=== PATIENT | female | born 1940 | race Two or more races ===

== ENCOUNTER 2016-03-30 15:59 | Inpatient (IN) | payer MEDICARE, OTHER ==
[~2016-03-30] VITALS: Ht 170.2 cm; Wt 77.1 kg
[~2016-03-30 15:59] MED LIST: NKM
[2016-03-30 16:00] VITALS: BP 167/91
[2016-03-30] MEDS ORDERED: Morphine Sulfate 4mg/ml Inj IVP ONE ×2 (16:15→17:30)
[2016-03-30 16:27] LABS: BASOPHILS % (AUTO) 1.1 % (0.0-2.0); EOSINOPHILS % (AUTO) 2.5 % (0.0-3.0); LYMPHOCYTES % (AUTO) 32.8 % (20.0-45.0); MEAN CORPUSCULAR HEMOGLOBIN 29.6 PG (27.0-31.0); MEAN CORPUSCULAR VOLUME 93 FL (80-99); MONOCYTES % (AUTO) 4.1 % (1.0-10.0); NEUTROPHILS % (AUTO) 59.5 % (45.0-75.0); PLATELET COUNT 363 K/UL (150-450); RED BLOOD COUNT 4.54 M/UL (4.20-5.40); WHITE BLOOD COUNT 9.9 K/UL (4.8-10.8)
[2016-03-30 16:40] LABS: ALANINE AMINOTRANSFERASE 23 U/L (3-33); ALBUMIN/GLOBULIN RATIO 1.4 (1.0-2.7); ANION GAP 13 (5-15); ASPARTATE AMINO TRANSFERASE 26 U/L (5-40); CALCIUM 9.8 mg/dL (8.6-10.2); CARBON DIOXIDE 29 mEQ/L (20-30); CHLORIDE 96 mEQ/L (98-107); CREATININE 0.8 mg/dL (0.5-0.9); HEMOLYSIS 18; POTASSIUM 4.3 mEQ/L (3.4-4.9); SODIUM 138 mEQ/L (135-145); TOTAL PROTEIN 7.3 g/dL (6.6-8.7)
[2016-03-30 16:41] LABS: PROTHROMBIN TIME 10.5 SEC (9.30-11.50)
[2016-03-30 16:50] VITALS: BP 154/70
--- NOTE | 2016-03-30 17:27 | Emergency Room Report ---
History of Present Illness General Chief Complaint: Pain Source: Patient Present Illness HPI This patient states that she was at work and tripped over a wire on the floor and fell onto her right side. She complains of right hip pain. She was unable to bear weight after the fall. She did not have head injury or trauma. She has no neck pain. She denies headache. She denies abdominal pain or chest pain. She denies shortness of breath. She has no other complaints. Allergies: Coded Allergies: PENICILLINS (Unverified Allergy, Unknown, 03/30/16) Patient History Past Medical History: none, see triage record Social History: Denies: alcohol use, drug use, smoking Reviewed Nursing Documentation: PMH: Agreed, PSxH: Agreed Nursing Documentation-PMH Past Medical History: No Stated History Review of Systems All Other Systems: negative except mentioned in HPI Physical Exam Vital Signs Date Time Temp Pulse Resp B/P Pulse Ox O2 Delivery O2 Flow Rate FiO2 03/30/16 15:50 98.2 76 19 144/86 99 Room Air Sp02 EP Interpretation: reviewed, normal General Appearance: no apparent distress, alert, GCS 15, non-toxic Head: normocephalic, atraumatic Eyes: bilateral eye PERRL, bilateral eye normal inspection ENT: hearing grossly normal, normal pharynx, no angioedema, normal voice Neck: full range of motion, supple/symm/no masses Respiratory: chest non-tender, lungs clear, normal breath sounds, speaking full sentences Cardiovascular #1: regular rate, rhythm, no edema Gastrointestinal: normal bowel sounds, non tender, soft, non-distended, no guarding, no rebound Rectal: deferred Musculoskeletal: back normal, other - R. hip. Pain with ROM Neurologic: alert, oriented x3, responsive, motor strength/tone normal, sensory intact, speech normal Psychiatric: judgement/insight normal, memory normal, mood/affect normal, no suicidal/homicidal ideation Skin: normal color, no rash, warm/dry, well hydrated Medical Decision Making Diagnostic Impression: Primary Impression: Hip fracture ER Course This patient presents with a right intertrochanteric fracture of the right hip. This is from a mechanical fall. There were no other injuries. Basic laboratory workup to include CBC, CMP and a coags are within normal limits. The patient is admitted for surgical repair. Labs Test 03/30/16 16:10 White Blood Count 9.9 K/UL (4.8-10.8) Red Blood Count 4.54 M/UL (4.20-5.40) Hemoglobin 13.4 G/DL (12.0-16.0) Hematocrit 42.0 % (37.0-47.0) Mean Corpuscular Volume 93 FL (80-99) Mean Corpuscular Hemoglobin 29.6 PG (27.0-31.0) Mean Corpuscular Hemoglobin Concent 32.0 G/DL (32.0-36.0) Red Cell Distribution Width 12.0 % (11.6-14.8) Platelet Count 363 K/UL (150-450) Mean Platelet Volume 6.0 FL (6.5-10.1) Neutrophils (%) (Auto) 59.5 % (45.0-75.0) Lymphocytes (%) (Auto) 32.8 % (20.0-45.0) Monocytes (%) (Auto) 4.1 % (1.0-10.0) Eosinophils (%) (Auto) 2.5 % (0.0-3.0) Basophils (%) (Auto) 1.1 % (0.0-2.0) Prothrombin Time 10.5 SEC (9.30-11.50) Prothromb Time International Ratio 1.0 (0.9-1.1) Activated Partial Thromboplast Time 26 SEC (23-33) Sodium Level 138 mEQ/L (135-145) Potassium Level 4.3 mEQ/L (3.4-4.9) Chloride Level 96 mEQ/L (98-107) Carbon Dioxide Level 29 mEQ/L (20-30) Anion Gap 13 (5-15) Blood Urea Nitrogen 19 mg/dL (7-23) Creatinine 0.8 mg/dL (0.5-0.9) Estimat Glomerular Filtration Rate mL/min (>60) Glucose Level 130 mg/dL (74-106) Calcium Level 9.8 mg/dL (8.6-10.2) Total Bilirubin 0.2 mg/dL (0.0-1.2) Aspartate Amino Transf (AST/SGOT) 26 U/L (5-40) Alanine Aminotransferase (ALT/SGPT) 23 U/L (3-33) Alkaline Phosphatase 85 U/L (35-104) Total Protein 7.3 g/dL (6.6-8.7) Albumin 4.3 g/dL (3.5-5.2) Globulin 3.0 g/dL Albumin/Globulin Ratio 1.4 (1.0-2.7) EKG Diagnostic Results Rate: normal Rhythm: NSR ST Segments: no acute changes Rhythm Strip Diag. Results EP Interpretation: yes Rate: 80's Rhythm: NSR, no PVC's, no ectopy Last Vital Signs Date Time Temp Pulse Resp B/P Pulse Ox O2 Delivery O2 Flow Rate FiO2 03/30/16 16:50 98.3 77 12 154/70 99 Room Air Disposition: ADMITTED INPATIENT Condition: Stable Referrals: [facility],REFERR[facility] (PCP) VIKKI BENNETT D.O. Mar 30, 2016 17:27
[2016-03-30 18:09] VITALS: BP 140/71
[2016-03-30 20:44] VITALS: BP 142/99
[2016-03-30] MEDS ORDERED: Morphine Sulfate 4mg/ml Inj IVP PRN (20:45)
[2016-03-30] MEDS ORDERED: Morphine Sulfate 4mg/ml Inj IM PRN (21:45)
[2016-03-30] MEDS: Morphine Sulfate 4mg/ml Inj IVP PRN (23:10)
[2016-03-31] VITALS (18 sets, daily range): BP systolic 103–172; BP diastolic 61–84
[2016-03-31] MEDS: Morphine Sulfate 4mg/ml Inj IVP PRN ×4 (02:55→14:26)
--- NOTE | 2016-03-31 09:02 | Consultation ---
History of Present Illness General Date patient seen: Mar 31, 2016 Chief Complaint: Pain Present Illness Allergies: Coded Allergies: PENICILLINS (Unverified Allergy, Unknown, 03/30/16) Medication History Scheduled No Known Medications* (NKM - No Known Medications*), 0 ., (Reported) Patient History Healthcare decision maker n/a Resuscitation status Full Code Advanced Directive on File No Physical Exam Last 24 Hour Vital Signs Date Time Temp Pulse Resp B/P Pulse Ox O2 Delivery O2 Flow Rate FiO2 03/31/16 08:49 98.1 78 18 115/70 95 Room Air 03/31/16 04:00 97.9 83 20 119/65 97 Room Air 03/31/16 03:25 97.9 03/31/16 00:00 97.9 104 18 103/61 97 Room Air 03/30/16 23:40 97.9 03/30/16 21:19 97.5 03/30/16 20:44 97.5 107 20 142/99 98 Room Air 03/30/16 20:15 80 15 128/67 98 Room Air 03/30/16 18:09 80 12 140/71 99 Room Air 03/30/16 18:07 98.3 03/30/16 16:50 98.3 77 12 154/70 99 Room Air 03/30/16 16:50 98.3 03/30/16 16:00 85 17 167/91 100 Room Air 03/30/16 15:50 98.2 76 19 144/86 99 Room Air Intake and Output 03/30/16 03/31/16 19:00 07:00 Intake Total 295 ml Output Total 2900 ml Balance -2605 ml Intake Oral 220 ml IV Total 75 ml Output Urine Total 2900 ml Laboratory Tests Test 03/30/16 16:10 White Blood Count 9.9 K/UL (4.8-10.8) Red Blood Count 4.54 M/UL (4.20-5.40) Hemoglobin 13.4 G/DL (12.0-16.0) Hematocrit 42.0 % (37.0-47.0) Mean Corpuscular Volume 93 FL (80-99) Mean Corpuscular Hemoglobin 29.6 PG (27.0-31.0) Mean Corpuscular Hemoglobin Concent 32.0 G/DL (32.0-36.0) Red Cell Distribution Width 12.0 % (11.6-14.8) Platelet Count 363 K/UL (150-450) Mean Platelet Volume 6.0 FL (6.5-10.1) L Neutrophils (%) (Auto) 59.5 % (45.0-75.0) Lymphocytes (%) (Auto) 32.8 % (20.0-45.0) Monocytes (%) (Auto) 4.1 % (1.0-10.0) Eosinophils (%) (Auto) 2.5 % (0.0-3.0) Basophils (%) (Auto) 1.1 % (0.0-2.0) Prothrombin Time 10.5 SEC (9.30-11.50) Prothromb Time International Ratio 1.0 (0.9-1.1) Activated Partial Thromboplast Time 26 SEC (23-33) Sodium Level 138 mEQ/L (135-145) Potassium Level 4.3 mEQ/L (3.4-4.9) Chloride Level 96 mEQ/L (98-107) L Carbon Dioxide Level 29 mEQ/L (20-30) Anion Gap 13 (5-15) Blood Urea Nitrogen 19 mg/dL (7-23) Creatinine 0.8 mg/dL (0.5-0.9) Estimat Glomerular Filtration Rate mL/min (>60) Glucose Level 130 mg/dL (74-106) H Calcium Level 9.8 mg/dL (8.6-10.2) Total Bilirubin 0.2 mg/dL (0.0-1.2) Aspartate Amino Transf (AST/SGOT) 26 U/L (5-40) Alanine Aminotransferase (ALT/SGPT) 23 U/L (3-33) Alkaline Phosphatase 85 U/L (35-104) Total Protein 7.3 g/dL (6.6-8.7) Albumin 4.3 g/dL (3.5-5.2) Globulin 3.0 g/dL Albumin/Globulin Ratio 1.4 (1.0-2.7) Height (Feet): 5 Height (Inches): 7.00 Weight (Pounds): 128 Medications Current Medications Medications (Trade) Dose Ordered Sig/Bryan Route PRN Reason Start Time Stop Time Status Last Admin Dose Admin Acetaminophen (Tylenol) 650 mg Q4H PRN ORAL Mild Pain/Temp > 100.5 03/30/16 21:15 04/29/16 21:14 Morphine Sulfate (Morphine Sulfate) 4 mg Q2H PRN IVP Severe Breakthru Pain (>7) 03/30/16 23:15 04/06/16 23:14 03/31/16 08:15 Morphine Sulfate (Morphine Sulfate) 4 mg Q4H PRN IVP Severe Pain (Pain Scale 7-10) 03/30/16 21:50 04/06/16 20:44 03/30/16 23:10 Sodium Chloride (0.45% NS 1000ml) 1,000 ml @ 75 mls/hr [id number] IV 03/30/16 22:00 04/29/16 21:59 03/30/16 23:06 Assessment/Plan Assessment/Plan (1) Right hip Fx (2) Right hip intractable pain Seem Dictated GEORGINA SAUL Mar 31, 2016 09:02
--- NOTE | 2016-03-31 09:59 | Cardiac Electrophysiology PN ---
Subjective Subjective [id number] Objective Last 24 Hour Vital Signs Date Time Temp Pulse Resp B/P Pulse Ox O2 Delivery O2 Flow Rate FiO2 03/31/16 08:49 98.1 78 18 115/70 95 Room Air 03/31/16 08:45 98.1 03/31/16 04:00 97.9 83 20 119/65 97 Room Air 03/31/16 00:00 97.9 104 18 103/61 97 Room Air 03/30/16 23:40 97.9 03/30/16 21:19 97.5 03/30/16 20:44 97.5 107 20 142/99 98 Room Air 03/30/16 20:15 80 15 128/67 98 Room Air 03/30/16 18:09 80 12 140/71 99 Room Air 03/30/16 18:07 98.3 03/30/16 16:50 98.3 77 12 154/70 99 Room Air 03/30/16 16:50 98.3 03/30/16 16:00 85 17 167/91 100 Room Air 03/30/16 15:50 98.2 76 19 144/86 99 Room Air Intake and Output 03/30/16 03/31/16 18:59 06:59 Intake Total 220 ml Output Total 2900 ml Balance -2680 ml Intake Oral 220 ml Output Urine Total 2900 ml Laboratory Tests Test 03/30/16 16:10 White Blood Count 9.9 K/UL (4.8-10.8) Red Blood Count 4.54 M/UL (4.20-5.40) Hemoglobin 13.4 G/DL (12.0-16.0) Hematocrit 42.0 % (37.0-47.0) Mean Corpuscular Volume 93 FL (80-99) Mean Corpuscular Hemoglobin 29.6 PG (27.0-31.0) Mean Corpuscular Hemoglobin Concent 32.0 G/DL (32.0-36.0) Red Cell Distribution Width 12.0 % (11.6-14.8) Platelet Count 363 K/UL (150-450) Mean Platelet Volume 6.0 FL (6.5-10.1) L Neutrophils (%) (Auto) 59.5 % (45.0-75.0) Lymphocytes (%) (Auto) 32.8 % (20.0-45.0) Monocytes (%) (Auto) 4.1 % (1.0-10.0) Eosinophils (%) (Auto) 2.5 % (0.0-3.0) Basophils (%) (Auto) 1.1 % (0.0-2.0) Prothrombin Time 10.5 SEC (9.30-11.50) Prothromb Time International Ratio 1.0 (0.9-1.1) Activated Partial Thromboplast Time 26 SEC (23-33) Sodium Level 138 mEQ/L (135-145) Potassium Level 4.3 mEQ/L (3.4-4.9) Chloride Level 96 mEQ/L (98-107) L Carbon Dioxide Level 29 mEQ/L (20-30) Anion Gap 13 (5-15) Blood Urea Nitrogen 19 mg/dL (7-23) Creatinine 0.8 mg/dL (0.5-0.9) Estimat Glomerular Filtration Rate mL/min (>60) Glucose Level 130 mg/dL (74-106) H Calcium Level 9.8 mg/dL (8.6-10.2) Total Bilirubin 0.2 mg/dL (0.0-1.2) Aspartate Amino Transf (AST/SGOT) 26 U/L (5-40) Alanine Aminotransferase (ALT/SGPT) 23 U/L (3-33) Alkaline Phosphatase 85 U/L (35-104) Total Protein 7.3 g/dL (6.6-8.7) Albumin 4.3 g/dL (3.5-5.2) Globulin 3.0 g/dL Albumin/Globulin Ratio 1.4 (1.0-2.7) DAGMAR BENAVIDES Mar 31, 2016 09:59
--- NOTE | 2016-03-31 11:41 | Diagnostic Imaging Report ---
Indication: Chest Pain Comparison: None A single view chest radiograph was obtained. Findings: This is a preop chest. Bones are osteopenic. Lungs are clear. Heart is mildly enlarged. Aorta is mildly ectatic and calcified. Impression: No acute disease
--- NOTE | 2016-03-31 11:56 | Diagnostic Imaging Report ---
Indications: hip pain Findings: Two views of the right hip were obtained. Bones are osteopenic. There is suspicion of a intertrochanteric fracture of the right hip is seen on the lateral view. This is nondisplaced. Degenerative changes of the lower lumbar spine noted. Vascular calcifications are present. Impression: Acute intertrochanteric fracture right hip
--- NOTE | 2016-03-31 16:18 | Consultation ---
DATE OF CONSULTATION: 03/31/2016 CARDIOLOGY CONSULTATION REASON FOR CONSULTATION: Preoperative clearance prior to hip surgery. HISTORY OF PRESENT ILLNESS: The patient is a very pleasant 75-year-old lady with no past medical history presented to the emergency room after she had trip and fall on a wire. The patient fell on right side and complaining of right hip pain. The patient will subsequently was brought to the emergency room, was found to have a right intertrochanteric fracture of the right hip. The patient is scheduled for her surgery and a Cardiology clearance was requested for further evaluation and management. The patient denies any prior congestive heart failure, hypertension, diabetes or any other medical condition. PAST MEDICAL HISTORY: None. MEDICATIONS: At home is none. SOCIAL HISTORY: She lives at home and does not smoke or drink alcohol. FAMILY HISTORY: Noncontributory. REVIEW OF SYSTEMS: Review of systems was thoroughly performed and was negative other what was mentioned in history of present illness. PHYSICAL EXAMINATION: VITAL SIGNS: Blood pressure is 115/70, pulse is 78, respirations 18 and she is afebrile. HEAD AND NECK: No JVD or carotid bruits. LUNGS: Clear. CARDIOVASCULAR: Regular S1 and S2 with no gallop or murmur. ABDOMEN: Soft and nontender. EXTREMITIES: No pitting edema. Right hip is rotated and tender. LABORATORY AND DIAGNOSTIC DATA: White count 9.9, hemoglobin 13.4, hematocrit 42, and platelet count 363,000. Sodium 138, potassium 4.3, BUN of 19, creatinine 0.8, and glucose of 130. Assessment And Plan: Status post fall, rule out any acute fracture. The patient denies any syncope or presyncope. The patient denies any prior congestive heart failure or prior myocardial infarction or hypertension or diabetes. The patient's other risk factors includes her age of 75. We will get an EKG and echocardiogram, but unless 02:54 positive findings, she should be stable to undergo the above-mentioned surgery. In the absence of any of her risk factors, stress test is not recommended at this point. Thank very much, Dr. Santiago, for allowing me to participate in the care of this patient. Please do not hesitate to contact me for any questions regarding my evaluation. The case was discussed with the nurse as well as the patient's son at the bedside. Martin Solis M.D. DR: CHIO JOB#: [id number] CC:
--- NOTE | 2016-03-31 17:16 | Anethesia Preoperative Eval ---
Anesthesia Pre-op PMH/ROS General Date of Evaluation: Mar 31, 2016 Anesthesiologist: Freddie ASA Score: ASA 2 Mallampati Score Class I : Soft palate, uvula, fauces, pillars visible Class II: Soft palate, uvula, fauces visible Class III: Soft palate, base of uvula visible Class IV: Only hard plate visible Mallampati Classification: Class II Surgeon: Kyle Diagnosis: Right hip fracture Surgical Procedure: Right hip ORIF Anesthesia History: none Family History: no anesthesia problems Allergies: Coded Allergies: PENICILLINS (Unverified Allergy, Unknown, 03/30/16) Medications: see eMAR Past Medical History Cardiovascular: Reports: other - hypotension, Denies: CAD, HTN, [place], arrhythmia, valve dz Pulmonary: Denies: COPD, TAMEKA, asthma, other Gastrointestinal/Genitourinary: Reports: GERD, Denies: CRI, ESRD, other Neurologic/Psychiatric: Denies: CVA, TIA, dementia, depression/anxiety, other Endocrine: Denies: DM, hypothyroidism, other, steroids HEENT: Denies: MOHEGAN (L), MOHEGAN (R), cataract (L), cataract (R), glaucoma, other Hematology/Immune: Denies: DVT, anemia, bleeding disorder, other Musculoskeletal/Integumentary: Denies: DDD, DJD, OA, RA, edema, other Anesthesia Pre-op Phys. Exam Physician Exam Last Vital Signs Date Time Temp Pulse Resp B/P Pulse Ox O2 Delivery O2 Flow Rate FiO2 03/31/16 16:02 98.2 71 18 123/62 93 Room Air Constitutional: NAD Cardiovascular: RRR Respiratory: CTA Airway Exam Mallampati Score: Class II MO: full ROM: full Teeth: intact Anesthesia Pre-op A/P Labs see chart Studies Pre-op Studies: EKG - RBBB Risk Assessment & Plan Assessment: ASA IIE Plan: GA Status Change Before Surgery: No Pre-Antibiotics Drug: Clindamycin 900mg Given Within 1 Hr of Incision: Yes Time Given: 19:25 CATRINA STROUD M.D. Mar 31, 2016 17:16
[2016-03-31] MEDS ORDERED: LR 1000ml 1,000 ML IVLG SCH ×2 (17:54→19:41)
[2016-03-31] MEDS ORDERED: Ketorolac 30mg Inj IV PRN (18:00)
[2016-03-31] MEDS ORDERED: Labetalol 5mg/ml 20ml vial IV PRN ×2 (18:00→19:45)
[2016-03-31] MEDS ORDERED: fentaNYL 100 mcg/2 mL IV PRN ×2 (18:00→19:45)
[2016-03-31] MEDS ORDERED: DiphenhydrAMINE 50mg/ml Inj IVP PRN ×2 (18:00→19:45)
[2016-03-31] MEDS ORDERED: Midazolam 2mg/2ml Inj IVP ONE (18:00)
[2016-03-31] MEDS ORDERED: Hydromorphone 0.5mg/0.5ml inj IVP PRN ×2 (18:00→19:45)
[2016-03-31] MEDS ORDERED: Propofol 10mg/ml 20ml IV ONE (18:07)
[2016-03-31] MEDS ORDERED: Bacitracin 50000 Units Vial ONE (18:08)
[2016-03-31] MEDS ORDERED: Clindamycin 6 ML ONE (18:08)
[2016-03-31] MEDS ORDERED: Bupivacaine w/Epi 0.25% 30ml Vial INJ ONE (18:08)
[2016-03-31] MEDS ORDERED: 1/2 NS 1000ml IV ONE (18:17)
[2016-03-31] MEDS ORDERED: D5NS 1000ml IV ONE (18:17)
[2016-03-31] MEDS ORDERED: Tubing IV Secondary IV ONE (18:20)
[2016-03-31] MEDS ORDERED: NS 550ML IV ONE (18:20)
--- NOTE | 2016-03-31 18:57 | Consultation ---
DATE OF CONSULTATION: CHIEF COMPLAINT: Right hip pain. HPI: This is a pleasant female, who sustained a mechanical fall. She had difficulty ambulating. She was brought to emergency room where she was diagnosed with right hip fracture. Orthopedic consultation was obtained for further care and recommendation. PAST MEDICAL HISTORY: Reviewed from the intake chart. PAST SURGICAL HISTORY: Reviewed from the intake chart. MEDICATIONS: Reviewed from the intake chart. PHYSICAL EXAMINATION: The patient has pain with internal and external rotation of the right hip. She has sensation on light touch. Reflexes are +2. Posterior calf is soft. Abdomen is soft. The patient is alert and oriented. IMAGING STUDIES: Two views of the right hip reviewed showed nondisplaced intertrochanteric hip fracture. ASSESSMENT: Right nondisplaced intertrochanteric hip fracture. DISCUSSION: At this point, she will need to undergo operative fixation with open reduction and internal fixation. Risks, limitations, expectations, and complications of procedure were discussed in detail. All questions addressed. We are going to proceed with surgery tomorrow. She is medically optimized. We will make her NPO in anticipation of surgery. Alternatives were also discussed with her, but in order for her to ambulate, she needs surgery. Jr Wright M.D. DR: ABDI JOB#: [id number] CC:
[2016-03-31] MEDS ORDERED: Lidocaine 1% MPF 10mg/ml 5ml ONE (19:00)
[2016-03-31] MEDS ORDERED: fentaNYL 100 mcg/2 mL IV ONE (19:00)
[2016-03-31] MEDS ORDERED: NS Irrig 1000ml ONE (19:00)
[2016-03-31] MEDS ORDERED: LR 1000ml ONE (19:00)
[2016-03-31] MEDS ORDERED: Etomidate 40mg/20ml Inj IV ONE (19:00)
[2016-03-31] MEDS ORDERED: Sterile Water Irrig 1000ml IRRIG ONE (19:00)
[2016-03-31] MEDS ORDERED: Ketamine 500mg Inj ONE (19:00)
[2016-03-31] MEDS ORDERED: Midazolam 2mg/2ml Inj ONE (19:00)
--- NOTE | 2016-03-31 19:14 | Operative Note - PDOC ---
Operative Note Operative Note Pre-op Diagnosis: right it hip fracture Procedure: right hip orif Post-op Diagnosis: same as pre-op Operative Findings: consistent w/pre-op dx studies Anesthesia: regional Specimen: none Complications: none Condition: stable Estimated Blood Loss: none Implant(s) used?: Yes NEDRA GIBBS Mar 31, 2016 19:14
--- NOTE | 2016-03-31 19:14 | Pre-Procedure Note/Attestation ---
Pre-Procedure Note/Attestation Complete Prior to Procedure Planned Procedure: right Procedure Narrative: hip orif Indications for Procedure Pre-Operative Diagnosis: right it hip fracture Attestation I attest that I discussed the nature of the procedure; its benefits; risks and complications; and alternatives (and the risks and benefits of such alternatives ), prior to the procedure, with the patient (or the patient's legal product representative). I attest that, if there was a reasonable possibility of needing a blood transfusion, the patient (or the patient's legal product representative) was given the [facility] standardized written summary, pursuant to the [place] Blood Safety Act ([place] Health and Safety Code # 1645, as amended). I attest that I re-evaluated the patient just prior to the surgery and that there has been no change in the patient's H&P, except as documented below: NEDRA GIBBS Mar 31, 2016 19:13
[2016-03-31] MEDS ORDERED: Metoclopramide 10mg/2ml Inj IVP PRN (19:15)
[2016-03-31] MEDS ORDERED: Norco 7.5mg/325mg tab ORAL PRN (19:15)
[2016-03-31] MEDS ORDERED: Milk of Magnesia 30ml Ud ORAL PRN (19:15)
[2016-03-31] MEDS ORDERED: Morphine Sulfate 2mg/ml Inj IVP PRN (19:15)
[2016-03-31] MEDS ORDERED: Morphine Sulfate 4mg/ml Inj IVP PRN (19:15)
[2016-03-31] MEDS ORDERED: oxyCODONE 5mg IR tab ORAL PRN (19:15)
[2016-03-31] MEDS ORDERED: Norco 5mg/325mg tab ORAL PRN (19:15)
[2016-03-31] MEDS ORDERED: Kenalog-40 1ml Vial ONE (19:41)
[2016-03-31] MEDS ORDERED: Morphine Sulfate PF 10 ML ONE (19:41)
--- NOTE | 2016-03-31 19:41 | Immediate Post-Op Evaluation ---
Immediate Post-Op Evalulation Immediate Post-Op Evalulation Procedure: Right hip ORIF Date of Evaluation: Mar 31, 2016 Time of Evaluation: 20:15 IV Fluids: 600 Blood Products: 0 Estimated Blood Loss: min Urinary Output: 300 Blood Pressure Systolic: 172 Blood Pressure Diastolic: 82 Pulse Rate: 83 Respiratory Rate: 16 O2 Sat by Pulse Oximetry: 100 Temperature (Fahrenheit): 97.4 Pain Score (1-10): 0 Nausea: No Vomiting: No Complications 0 Patient Status: awake, reacts, patent, none Hydration Status: adequate Drug: Clindamycin 900mg Given Within 1 Hr of Incision: Yes Time Given: 19:25 CATRINA STROUD M.D. Mar 31, 2016 19:41
[2016-03-31] MEDS ORDERED: Bupivacaine 0.25% Inj 30ml INJ ONE (19:42)
[2016-03-31] MEDS ORDERED: Ketorolac 30mg Inj IM ONE (20:00)
[2016-03-31] MEDS ORDERED: Duramorph PF 10mg/10ml amp EPIDUR ONE (20:00)
--- NOTE | 2016-03-31 21:35 | Cardiology Report ---
APPROVED REPORT EXAM: Two-dimensional and M-mode echocardiogram with Doppler and color Doppler. INDICATION Preop evaluation M-Mode DIMENSIONS IVSd1.3 (0.7-1.1cm)Left Atrium (MM)2.3 (1.6-4.0cm) LVDd3.5 (3.5-5.6cm)Aortic Root3.2 (2.0-3.7cm) PWd1.3 (0.7-1.1cm)Aortic Cusp Exc.1.6 (1.5-2.0cm) LVDs1.9 (2.5-4.0cm) PWs1.9 cm Normal left ventricular chamber size, hyperdynamic systolic function and wall motion. Left ventricular ejection fraction estimated to be 70-75 %. Mild left ventricular hypertrophy. Anterior Echo-free space, may be due to pericardial fat or effusion. All other cardiac chamber sizes are within normal limits. Focal aortic valve sclerosis with adequate cusp excursion. Thickened mitral valve leaflets with normal excursion. Mitral annulus and aortic root calcification. Pulmonic valve not well visualized. Normal tricuspid valve structure. IVC dilated at 2.1 cm with slight physiologic collapse suggestive of mildly increased RA pressure. A color flow and spectral Doppler study was performed and revealed: Mild mitral regurgitation. Mitral inflow indicates normal left ventricular diastolic function. Mild tricuspid regurgitation. Tricuspid systolic velocities suggests peak right ventricular systolic pressure of 40 mmHg, consistent with mild pulmonary hypertension.
[2016-03-31] MEDS ORDERED: ceFAZolin sod 2 GM in D5W 100 ML IV SCH (22:00)
[2016-04-01 00:30] VITALS: BP 131/76
[2016-04-01 04:16] VITALS: BP 114/69
[2016-04-01] MEDS: D5 1/2NS w/KCl 20mEq 1,000 ML IV SCH ×2 (04:28→08:20)
[2016-04-01] MEDS: Clindamycin 600mg 50 ML IV SCH ×3 (05:03→22:20)
--- NOTE | 2016-04-01 06:07 | Consultation ---
DATE OF CONSULTATION: 03/31/2016 PAIN MANAGEMENT CONSULTATION CONSULTING PHYSICIAN: Michelle Chavez M.D. REFERRING PHYSICIAN: Perry Santiago M.D. PHYSICIAN PSYCHIATRIC ATTENDANT: Tristan CAMPOS CHIEF COMPLAINT: Right hip pain. HISTORY OF PRESENT ILLNESS: This is a 75-year-old female, being seen for initial pain management consultation on the Med/Surg floor of [facility]. She reports that after she had a slip and fall while at work was brought to Emergency department and was found to have a right hip fracture. At this patient is in bed in no acute distress stating that her pain is severe with movement and touch describing it as a sharp stabbing shooting pain. The patient's family is at bedside. Orthopedic surgeon has been consulted as per Dr. Santiago's, we will start on morphine 4 mg IV every four hours as needed for the patient's pain and morphine 2 mg IV every four hours as needed. Once surgery is done we will change medication if warranted. PAST MEDICAL HISTORY: Denied. PAST SURGICAL HISTORY: Denied. SOCIAL HISTORY: occasional smoker. ALLERGIES: Penicillin. MEDICATIONS: Morphine . REVIEW OF SYSTEMS: Denies rash, fever, chills, sweating, dizziness, drowsiness, blurred vision, sore throat, or change in hearing or weight. No shortness of breath, chest pain, palpitations, or cough. No bowel or bladder incontinence. No dysuria. She is complaining of right hip pain. PHYSICAL EXAMINATION: GENERAL: The patient is alert, awake, and oriented x3. VITAL SIGNS: Blood pressure 115/70, heart rate is 78, oxygen saturation 97%, respirations 18, and temperature is 98.1 degrees Fahrenheit. HEENT: PERRLA. NECK: Range of motion is full in all directions. No tenderness to paracervical muscles. No adenopathy. LUNGS: Clear. HEART: Regular. ABDOMEN: Benign. BACK: Range of motion is decreased in flexion and extension with tenderness to paraspinal muscles and trapezial muscles. EXTREMITIES: Upper extremity range of motion is full in all directions. Motor is intact. No cyanosis. No clubbing. No edema. Sensory is intact. Reflexes are unobtainable. No adenopathy. Lower extremity range of motion is decreased due to the patient's pain and condition. Tenderness to palpation in the right hip. Sensory is intact. Reflexes are obtainable. No adenopathy. ASSESSMENT AND PLAN: This is a 75-year-old female with right hip intractable pain and right hip fracture. Patient will be seen by orthopedic surgeon for possible open reduction and internal fixation as per orthopedic surgeon. The patient will be continued on the morphine 4 mg IV every two to four hours as needed for pain. The patient was discussed with Dr. Chavez and Dr. Chavez concurred. We will follow the patient. Thank you very much for the courtesy of this consultation. Michelle Chavez M.D. BETH Ann DR: TREV JOB#: [id number] CC: MICHAEL
--- NOTE | 2016-04-01 06:47 | Operative Note - Dictated ---
DATE OF OPERATION: 03/31/2016 PREOPERATIVE DIAGNOSIS: Right two-part intertrochanteric hip fracture. POSTOPERATIVE DIAGNOSIS: Right two-part intertrochanteric hip fracture. PROCEDURE: Open reduction and internal fixation of right intertrochanteric hip fracture SURGEON: Jr Wright M.D. ANESTHESIA: General. INDICATION FOR PROCEDURE: The patient is a pleasant 75-year-old female, who sustained a mechanical fall. She was diagnosed with a right intertrochanteric hip fracture. She is indicative of operative fixation. Risks, limitations, expectations, and complications of the procedure were discussed in detail including neurovascular damage, risk of anesthesia, medical complications, DVT, PE, and mortality risks. All questions were addressed. DESCRIPTION OF PROCEDURE: An informed consent was obtained. The patient was taken to the operative room and was placed under general anesthesia. The patient was then carefully positioned in the fracture table. Reduction of the fracture under fluoroscopic imaging was performed. The right hip was prepped and draped in a sterile manner. Clindamycin was administered. Time-out was performed. Lateral skin incision was then made. Guidewire was placed into of the femur. Once adequate position was confirmed on AP and lateral imaging, the proximal aspect of the femur was opened up. Once that was done, a short 125 gamma nail was selected and placed. Through a second stab incision, K-wire was placed to the neck head junction. Once adequate position was confirmed on AP and lateral imaging, a 5 mm screw was then placed. The set screw was locked and turned a quarter turn. At this point, through a third stab incision, distal femoral distal locking screw was placed. At this point, AP and lateral imaging showed good reduction of the fracture fragment. It was a nondisplaced fracture therefore fixation was adequate. At this point, the wound was copiously irrigated. Hemostasis was obtained using electrocautery. The skin was closed with #1 Vicryl suture, 2-0 Vicryl suture, and 3-0 Monocryl suture. Steri-Strips and compression dressing was applied. The patient was awoken and taken to the recovery room with stable vital signs. ESTIMATED BLOOD LOSS: Minimal. COMPLICATIONS: None. SPECIMENS: None. IMPLANTS: Include [place] 800 gamma nail, 85 mm screw 35 mm distal locking screw. Jr Wright M.D. DR: LINDA JOB#: [id number] CC: MICHAEL
[2016-04-01 08:00] VITALS: BP 103/64
[2016-04-01] MEDS ORDERED: Enoxaparin 40mg Inj SUBQ SCH (09:00)
[2016-04-01] MEDS ORDERED: celeBREX 200mg Cap **SURGERY PATIENTS ONLY ORAL SCH (09:00)
[2016-04-01] MEDS ORDERED: oxyCONTIN 20mg tab ORAL SCH (09:00)
--- NOTE | 2016-04-01 09:00 | General Progress Note ---
Assessment/Plan Assessment/Plan (1) Right hip Fx (2) Right hip intractable pain (3) S/p ORIF The patient will be continued on the morphine 2-4 mg IV every 3 hours PRN pain, she will be started on [place] 10/325mg Q4H PRN pain and Robaxin 500mg Q8H PRN muscles spasm. We will discontinued Oxycontin and Oxycodone. The patient was discussed with Dr. Chavez and Dr. Chavez concurred. Subjective Date patient seen: Apr 01, 2016 Time patient seen: 07:00 - am Allergies: Coded Allergies: PENICILLINS (Unverified Allergy, Unknown, 03/30/16) Subjective REVIEW OF SYSTEMS: Denies rash, fever, chills, sweating, dizziness, drowsiness, blurred vision, sore throat, or change in hearing or weight. No shortness of breath, chest pain, palpitations, or cough. No bowel or bladder incontinence. C/o right hip pain SUBJECTIVE: Pt is s/o ORIF and is c/o no pain at this time. She had been ordered to take Oxycontin 20mg BID and Oxycodone 5mg Q4H PRN [place] 5-7.5mg Q4H PRN. Again pt states she is in no pain . Objective Last 24 Hour Vital Signs Date Time Temp Pulse Resp B/P Pulse Ox O2 Delivery O2 Flow Rate FiO2 04/01/16 07:40 93 Nasal Cannula 2.0 28 04/01/16 07:40 Nasal Cannula 2.0 28 04/01/16 04:16 98.8 82 18 114/69 98 Nasal Cannula 2.0 04/01/16 04:00 82 04/01/16 00:30 97.7 94 19 131/76 94 Nasal Cannula 2.0 04/01/16 00:00 88 03/31/16 22:29 109 20 150/71 99 Nasal Cannula 3.0 03/31/16 22:24 142 20 123/80 99 Simple Mask 8.0 03/31/16 22:00 144 20 141/77 99 Simple Mask 8.0 03/31/16 21:45 135 20 141/77 99 Simple Mask 8.0 03/31/16 21:25 120 20 141/77 99 Simple Mask 8.0 03/31/16 21:16 86 20 141/77 99 Simple Mask 8.0 03/31/16 21:02 93 20 148/70 99 Simple Mask 8.0 03/31/16 20:58 96 20 167/82 99 Simple Mask 8.0 03/31/16 20:48 77 20 158/81 100 Simple Mask 8.0 03/31/16 20:39 80 20 146/69 100 Simple Mask 8.0 03/31/16 20:20 89 20 151/73 100 Simple Mask 8.0 03/31/16 20:15 89 20 157/84 100 Simple Mask 8.0 03/31/16 20:14 83 16 100 03/31/16 20:10 97.4 85 20 172/82 100 Simple Mask 8.0 03/31/16 19:30 94 Nasal Cannula 2.0 28 03/31/16 19:30 Nasal Cannula 2.0 28 03/31/16 16:02 98.2 71 18 123/62 93 Room Air 03/31/16 14:57 98.1 03/31/16 12:56 98.1 73 18 129/65 95 Room Air 03/31/16 11:55 98.1 Intake and Output 03/31/16 04/01/16 19:00 07:00 Intake Total 720 ml 1540 ml Output Total 400 ml 600 ml Balance 320 ml 940 ml Intake Oral 120 ml 240 ml IV Total 600 ml 1300 ml Output Urine Total 400 ml 600 ml Height (Feet): 5 Height (Inches): 7.00 Weight (Pounds): 170 Objective PHYSICAL EXAMINATION: GENERAL: The patient is alert, awake, and oriented x3. HEENT: PERRLA. NECK: Range of motion is full in all directions. No tenderness to paracervical muscles. No adenopathy. LUNGS: Clear. HEART: Regular. ABDOMEN: Benign. EXTREMITIES: Lower extremity range of motion is decreased due to the patient's pain and condition. Tenderness to palpation in the right hip bandages applied NEURO: No changes GEORGINA SAUL Apr 01, 2016 09:00
[2016-04-01] MEDS ORDERED: Norco 10mg/325mg tab ORAL PRN (09:15)
[2016-04-01] MEDS: Pericolace tab ORAL SCH ×2 (09:41→17:05)
[2016-04-01] MEDS ORDERED: Methocarbamol 500mg tab ORAL PRN ×2 (10:00→18:00)
[2016-04-01] MEDS ORDERED: Morphine Sulfate 2mg/ml Inj IVP PRN (10:30)
--- NOTE | 2016-04-01 11:06 | 48 Hour Post Anesthesia Eval ---
Post Anesthesia Evaluation Procedure: Right hip ORIF Date of Evaluation: Apr 01, 2016 Time of Evaluation: 11:05 Blood Pressure Systolic: 110 0: 52 Pulse Rate: 76 Respiratory Rate: 20 Temperature (Fahrenheit): 97.6 O2 Sat by Pulse Oximetry: 98 Airway: patent Nausea: No Vomiting: No Pain Intensity: 2 Hydration Status: adequate Cardiopulmonary Status: stable Mental Status/LOC: patient returned to baseline Follow-up Care/Observations: n/a Post-Anesthesia Complications: none Follow-up care needed: N/A MOLLY DE LA CRUZ M.D. Apr 01, 2016 11:06
--- NOTE | 2016-04-01 11:35 | General Progress Note ---
Assessment/Plan Problem List: (1) Hip fracture ICD Codes: S72.009A - Fracture of unspecified part of neck of unspecified femur , initial encounter for closed fracture SNOMED: 676930087 Status: progressing Assessment/Plan hip orif by ortho dc plan per ortho Subjective Allergies: Coded Allergies: PENICILLINS (Unverified Allergy, Unknown, 03/30/16) Objective Last 24 Hour Vital Signs Date Time Temp Pulse Resp B/P Pulse Ox O2 Delivery O2 Flow Rate FiO2 04/01/16 11:06 76 20 98 04/01/16 08:00 97.7 67 18 103/64 99 Nasal Cannula 2.0 04/01/16 07:40 93 Nasal Cannula 2.0 28 04/01/16 07:40 Nasal Cannula 2.0 28 04/01/16 04:16 98.8 82 18 114/69 98 Nasal Cannula 2.0 04/01/16 04:00 82 04/01/16 00:30 97.7 94 19 131/76 94 Nasal Cannula 2.0 04/01/16 00:00 88 03/31/16 22:29 109 20 150/71 99 Nasal Cannula 3.0 03/31/16 22:24 142 20 123/80 99 Simple Mask 8.0 03/31/16 22:00 144 20 141/77 99 Simple Mask 8.0 03/31/16 21:45 135 20 141/77 99 Simple Mask 8.0 03/31/16 21:25 120 20 141/77 99 Simple Mask 8.0 03/31/16 21:16 86 20 141/77 99 Simple Mask 8.0 03/31/16 21:02 93 20 148/70 99 Simple Mask 8.0 03/31/16 20:58 96 20 167/82 99 Simple Mask 8.0 03/31/16 20:48 77 20 158/81 100 Simple Mask 8.0 03/31/16 20:39 80 20 146/69 100 Simple Mask 8.0 03/31/16 20:20 89 20 151/73 100 Simple Mask 8.0 03/31/16 20:15 89 20 157/84 100 Simple Mask 8.0 03/31/16 20:14 83 16 100 03/31/16 20:10 97.4 85 20 172/82 100 Simple Mask 8.0 03/31/16 19:30 94 Nasal Cannula 2.0 28 03/31/16 19:30 Nasal Cannula 2.0 28 03/31/16 16:02 98.2 71 18 123/62 93 Room Air 03/31/16 14:57 98.1 03/31/16 12:56 98.1 73 18 129/65 95 Room Air 03/31/16 11:55 98.1 Intake and Output 03/31/16 04/01/16 19:00 07:00 Intake Total 720 ml 1540 ml Output Total 400 ml 600 ml Balance 320 ml 940 ml Intake Oral 120 ml 240 ml IV Total 600 ml 1300 ml Output Urine Total 400 ml 600 ml Height (Feet): 5 Height (Inches): 7.00 Weight (Pounds): 170 Perry Santiago MD Apr 01, 2016 11:35
[2016-04-01 12:00] VITALS: BP 111/61
[2016-04-01 16:00] VITALS: BP 104/61
[2016-04-01] MEDS ORDERED: Tubing IV Secondary IV ONE (16:42)
--- NOTE | 2016-04-01 16:50 | Cardiac Electrophysiology PN ---
Assessment/Plan Status Narrative Normal left ventricular chamber size, hyperdynamic systolic function and wall motion. Left ventricular ejection fraction estimated to be 70-75 %. Mild left ventricular hypertrophy. Anterior Echo-free space, may be due to pericardial fat or effusion. All other cardiac chamber sizes are within normal limits. Focal aortic valve sclerosis with adequate cusp excursion. Thickened mitral valve leaflets with normal excursion. Mitral annulus and aortic root calcification. Pulmonic valve not well visualized. Normal tricuspid valve structure. IVC dilated at 2.1 cm with slight physiologic collapse suggestive of mildly increased RA pressure. Assessment/Plan 1) Status post fall without syncope. EF 75% no 2) S/P ORIF right hip last night with no cardiac issues. DW Son at bedside. Subjective Subjective Underwent successful Right hip ORIF last night with no cardiac event.No chest pain or SOB. Objective Last 24 Hour Vital Signs Date Time Temp Pulse Resp B/P Pulse Ox O2 Delivery O2 Flow Rate FiO2 04/01/16 16:00 98.2 71 18 104/61 96 Room Air 04/01/16 12:00 97.5 70 20 111/61 94 Nasal Cannula 2.0 04/01/16 11:06 76 20 98 04/01/16 08:00 97.7 67 18 103/64 99 Nasal Cannula 2.0 04/01/16 07:40 93 Nasal Cannula 2.0 28 04/01/16 07:40 Nasal Cannula 2.0 28 04/01/16 04:16 98.8 82 18 114/69 98 Nasal Cannula 2.0 04/01/16 04:00 82 04/01/16 00:30 97.7 94 19 131/76 94 Nasal Cannula 2.0 04/01/16 00:00 88 03/31/16 22:29 109 20 150/71 99 Nasal Cannula 3.0 03/31/16 22:24 142 20 123/80 99 Simple Mask 8.0 03/31/16 22:00 144 20 141/77 99 Simple Mask 8.0 03/31/16 21:45 135 20 141/77 99 Simple Mask 8.0 03/31/16 21:25 120 20 141/77 99 Simple Mask 8.0 03/31/16 21:16 86 20 141/77 99 Simple Mask 8.0 03/31/16 21:02 93 20 148/70 99 Simple Mask 8.0 03/31/16 20:58 96 20 167/82 99 Simple Mask 8.0 03/31/16 20:48 77 20 158/81 100 Simple Mask 8.0 03/31/16 20:39 80 20 146/69 100 Simple Mask 8.0 03/31/16 20:20 89 20 151/73 100 Simple Mask 8.0 03/31/16 20:15 89 20 157/84 100 Simple Mask 8.0 03/31/16 20:14 83 16 100 03/31/16 20:10 97.4 85 20 172/82 100 Simple Mask 8.0 03/31/16 19:30 94 Nasal Cannula 2.0 28 03/31/16 19:30 Nasal Cannula 2.0 28 Intake and Output 03/31/16 04/01/16 19:00 07:00 Intake Total 720 ml 1540 ml Output Total 400 ml 600 ml Balance 320 ml 940 ml Intake Oral 120 ml 240 ml IV Total 600 ml 1300 ml Output Urine Total 400 ml 600 ml Objective HEAD AND NECK: No JVD or carotid bruits. LUNGS: Clear. CARDIOVASCULAR: Regular S1 and S2 with no gallop or murmur. ABDOMEN: Soft and nontender. EXTREMITIES: No pitting edema. S/P Right hip ORIF DAGMAR BENAVIDES Apr 01, 2016 16:50
[2016-04-01] MEDS ORDERED: Labetalol 5mg/ml 20ml vial IV PRN (18:00)
[2016-04-01] MEDS ORDERED: Metoclopramide 10mg/2ml Inj IVP PRN (18:00)
[2016-04-01] MEDS ORDERED: Milk of Magnesia 30ml Ud ORAL PRN (19:15)
[2016-04-01 20:00] VITALS: BP 103/59
--- NOTE | 2016-04-01 20:32 | Cardiology Report ---
APPROVED REPORT EKG Measurement Heart [id number] Sinus rhythm with premature supraventricular complexes Incomplete right bundle branch block Borderline ECG
[2016-04-01] MEDS: Morphine Sulfate 2mg/ml Inj IVP PRN (22:26)
[2016-04-02] VITALS: BP 116/64
[2016-04-02] MEDS: Clindamycin 600mg 50 ML IV SCH ×3 (05:42→21:27)
[2016-04-02] MEDS: Morphine Sulfate 4mg/ml Inj IVP PRN ×2 (05:43→20:04)
[2016-04-02 08:00] VITALS: BP 135/75
[2016-04-02] MEDS: Pericolace tab ORAL SCH ×2 (08:39→18:16)
[2016-04-02] MEDS: celeBREX 200mg Cap **SURGERY PATIENTS ONLY ORAL SCH (08:40)
[2016-04-02] MEDS: Enoxaparin 40mg Inj SUBQ SCH (08:46)
--- NOTE | 2016-04-02 10:19 | General Progress Note ---
Assessment/Plan Assessment/Plan (1) Right hip Fx (2) Right hip intractable pain (3) S/p ORIF The patient will be continued on the morphine, [place] and Robaxin. Rx for discharge was written [place] 10/325mg 20 tabs. The patient was discussed with Dr. Chavez and Dr. Chavez concurred. Subjective Date patient seen: Apr 02, 2016 Time patient seen: 09:30 - am Allergies: Coded Allergies: PENICILLINS (Unverified Allergy, Unknown, 03/30/16) Subjective REVIEW OF SYSTEMS: Denies rash, fever, chills, sweating, dizziness, drowsiness, blurred vision, sore throat, or change in hearing or weight. No shortness of breath, chest pain, palpitations, or cough. No bowel or bladder incontinence. C/o right hip pain SUBJECTIVE: She continues to have pain more so with walking and PT. The pain is a 7/10 reduced to a 2/10 on the [place] and Morphine. Objective Last 24 Hour Vital Signs Date Time Temp Pulse Resp B/P Pulse Ox O2 Delivery O2 Flow Rate FiO2 04/02/16 08:00 97.2 69 18 135/75 93 Room Air 04/02/16 08:00 64 04/02/16 04:00 69 04/02/16 00:00 67 04/02/16 00:00 97.9 64 18 116/64 94 Room Air 04/01/16 20:00 74 04/01/16 20:00 65 18 103/59 91 Room Air 04/01/16 19:00 Room Air 04/01/16 19:00 93 Room Air 04/01/16 16:00 98.2 71 18 104/61 96 Room Air 04/01/16 15:46 74 04/01/16 12:00 97.5 70 20 111/61 94 Nasal Cannula 2.0 04/01/16 11:06 76 20 98 Intake and Output 04/01/16 04/02/16 19:00 07:00 Intake Total 1650 ml 250 ml Output Total 1000 ml 1500 ml Balance 650 ml -1250 ml Intake Oral 850 ml 200 ml IV Total 800 ml 50 ml Output Urine Total 1000 ml 1500 ml Height (Feet): 5 Height (Inches): 7.00 Weight (Pounds): 170 Objective PHYSICAL EXAMINATION: GENERAL: The patient is alert, awake, and oriented x3. HEENT: PERRLA. NECK: Range of motion is full in all directions. No tenderness to paracervical muscles. No adenopathy. LUNGS: Clear. HEART: Regular. ABDOMEN: Benign. EXTREMITIES: Lower extremity range of motion is decreased due to the patient's pain and condition. Tenderness to palpation in the right hip bandages applied NEURO: No changes GEORGINA SAUL Apr 02, 2016 10:19
[2016-04-02] MEDS: Morphine Sulfate 2mg/ml Inj IVP PRN (10:24)
--- NOTE | 2016-04-02 10:28 | Cardiac Electrophysiology PN ---
Assessment/Plan Status Narrative Normal left ventricular chamber size, hyperdynamic systolic function and wall motion. Left ventricular ejection fraction estimated to be 70-75 %. Mild left ventricular hypertrophy. Anterior Echo-free space, may be due to pericardial fat or effusion. All other cardiac chamber sizes are within normal limits. Focal aortic valve sclerosis with adequate cusp excursion. Thickened mitral valve leaflets with normal excursion. Mitral annulus and aortic root calcification. Pulmonic valve not well visualized. Normal tricuspid valve structure. IVC dilated at 2.1 cm with slight physiologic collapse suggestive of mildly increased RA pressure. Assessment/Plan 1) Status post fall without syncope. EF 75% no 2. Transient tachy due to atrial tach/fib that was resolved with no recurrence on tele. 2) S/P ORIF right hip DW daughter at bedside. Subjective Subjective Had transient atrial tach/fib and was transferred to [facility]. Has not had any arrhythmia or symptoms since.Daughter and RN at bedside.No chest pain or SOB. Objective Last 24 Hour Vital Signs Date Time Temp Pulse Resp B/P Pulse Ox O2 Delivery O2 Flow Rate FiO2 04/02/16 08:00 97.2 69 18 135/75 93 Room Air 04/02/16 08:00 64 04/02/16 04:00 69 04/02/16 00:00 67 04/02/16 00:00 97.9 64 18 116/64 94 Room Air 04/01/16 20:00 74 04/01/16 20:00 65 18 103/59 91 Room Air 04/01/16 19:00 Room Air 04/01/16 19:00 93 Room Air 04/01/16 16:00 98.2 71 18 104/61 96 Room Air 04/01/16 15:46 74 04/01/16 12:00 97.5 70 20 111/61 94 Nasal Cannula 2.0 04/01/16 11:06 76 20 98 Intake and Output 04/01/16 04/02/16 19:00 07:00 Intake Total 1650 ml 250 ml Output Total 1000 ml 1500 ml Balance 650 ml -1250 ml Intake Oral 850 ml 200 ml IV Total 800 ml 50 ml Output Urine Total 1000 ml 1500 ml Objective HEAD AND NECK: No JVD or carotid bruits. LUNGS: Clear. CARDIOVASCULAR: Regular S1 and S2 with no gallop or murmur. ABDOMEN: Soft and nontender. EXTREMITIES: No pitting edema. S/P Right hip ORIF DAGMAR BENAVIDES Apr 02, 2016 10:27
[2016-04-02 12:00] VITALS: BP 97/53
--- NOTE | 2016-04-02 14:37 | Diagnostic Imaging Report ---
Indication: Pain Comparison: None Findings: Multiple fluoroscopic images obtained in the operating room. Multiple images of the right hip demonstrating dynamic hip screw placement. Impression: Intraoperative imaging
[2016-04-02 16:00] VITALS: BP 126/52
[2016-04-02 20:00] VITALS: BP 156/76
[2016-04-03] VITALS: BP 141/69
[2016-04-03 04:00] VITALS: BP 144/87
[2016-04-03] MEDS: Clindamycin 600mg 50 ML IV SCH ×3 (06:02→21:35)
[2016-04-03] MEDS: Norco 10mg/325mg tab ORAL PRN ×3 (06:36→21:34)
[2016-04-03 07:52] VITALS: BP 139/70
[2016-04-03] MEDS: Pericolace tab ORAL SCH ×2 (08:12→18:16)
[2016-04-03] MEDS: celeBREX 200mg Cap **SURGERY PATIENTS ONLY ORAL SCH (08:12)
[2016-04-03] MEDS: Enoxaparin 40mg Inj SUBQ SCH (08:15)
[2016-04-03 11:36] VITALS: BP 131/80
--- NOTE | 2016-04-03 12:34 | Cardiac Electrophysiology PN ---
Assessment/Plan Status Narrative Normal left ventricular chamber size, hyperdynamic systolic function and wall motion. Left ventricular ejection fraction estimated to be 70-75 %. Mild left ventricular hypertrophy. Anterior Echo-free space, may be due to pericardial fat or effusion. All other cardiac chamber sizes are within normal limits. Focal aortic valve sclerosis with adequate cusp excursion. Thickened mitral valve leaflets with normal excursion. Mitral annulus and aortic root calcification. Pulmonic valve not well visualized. Normal tricuspid valve structure. IVC dilated at 2.1 cm with slight physiologic collapse suggestive of mildly increased RA pressure. Assessment/Plan 1) Status post fall without syncope. EF 75% no 2. Transient tachy due to atrial tach/fib that was resolved with no recurrence on tele. 2) S/P ORIF right hip DW RN OK to DC from cardiac standpoint Subjective Subjective No further atrial tach/fib post op. No chest pain or SOB. Objective Last 24 Hour Vital Signs Date Time Temp Pulse Resp B/P Pulse Ox O2 Delivery O2 Flow Rate FiO2 04/03/16 11:36 97.9 67 18 131/80 95 Room Air 04/03/16 08:00 61 04/03/16 07:52 97.5 59 18 139/70 95 Room Air 04/03/16 07:30 Room Air 21 04/03/16 07:30 95 Room Air 21 04/03/16 04:00 96.4 64 20 144/87 94 Room Air 04/03/16 03:57 58 04/03/16 00:00 96.9 65 20 141/69 95 Room Air 04/02/16 23:56 65 04/02/16 20:00 62 04/02/16 20:00 97.9 60 19 156/76 95 Room Air 04/02/16 16:00 97.5 65 18 126/52 93 Room Air 04/02/16 16:00 62 Intake and Output 04/02/16 04/03/16 19:00 07:00 Intake Total 610 ml 1050 ml Output Total 1000 ml Balance -390 ml 1050 ml Intake Oral 560 ml 1000 ml IV Total 50 ml 50 ml Output Urine Total 1000 ml # Voids 1 Objective HEAD AND NECK: No JVD or carotid bruits. LUNGS: Clear. CARDIOVASCULAR: Regular S1 and S2 with no gallop or murmur. ABDOMEN: Soft and nontender. EXTREMITIES: No pitting edema. S/P Right hip ORIF DAGMAR BENAVIDES Apr 03, 2016 12:34
--- NOTE | 2016-04-03 13:27 | General Progress Note ---
Assessment/Plan Problem List: (1) Hip fracture ICD Codes: S72.009A - Fracture of unspecified part of neck of unspecified femur , initial encounter for closed fracture SNOMED: [id number] Status: progressing Status Narrative pain at surgical site Assessment/Plan hip orif by ortho dc plan per ortho will go to whever the ortho orders Subjective Allergies: Coded Allergies: PENICILLINS (Unverified Allergy, Unknown, 03/30/16) Objective Last 24 Hour Vital Signs Date Time Temp Pulse Resp B/P Pulse Ox O2 Delivery O2 Flow Rate FiO2 04/03/16 11:36 97.9 67 18 131/80 95 Room Air 04/03/16 08:00 61 04/03/16 07:52 97.5 59 18 139/70 95 Room Air 04/03/16 07:30 Room Air 21 04/03/16 07:30 95 Room Air 21 04/03/16 04:00 96.4 64 20 144/87 94 Room Air 04/03/16 03:57 58 04/03/16 00:00 96.9 65 20 141/69 95 Room Air 04/02/16 23:56 65 04/02/16 20:00 62 04/02/16 20:00 97.9 60 19 156/76 95 Room Air 04/02/16 16:00 97.5 65 18 126/52 93 Room Air 04/02/16 16:00 62 Intake and Output 04/02/16 04/03/16 19:00 07:00 Intake Total 610 ml 1050 ml Output Total 1000 ml Balance -390 ml 1050 ml Intake Oral 560 ml 1000 ml IV Total 50 ml 50 ml Output Urine Total 1000 ml # Voids 1 Height (Feet): 5 Height (Inches): 7.00 Weight (Pounds): 170 Perry Santiago MD Apr 03, 2016 13:27
[2016-04-03 16:00] VITALS: BP 122/69
[2016-04-03 20:00] VITALS: BP 147/56
[2016-04-04 00:13] VITALS: BP 121/60
[2016-04-04 04:09] VITALS: BP 119/66
[2016-04-04] MEDS: Clindamycin 600mg 50 ML IV SCH ×2 (05:48→14:43)
[2016-04-04 08:00] VITALS: BP 123/66
[2016-04-04] MEDS: Pericolace tab ORAL SCH ×2 (08:42→17:37)
[2016-04-04] MEDS: celeBREX 200mg Cap **SURGERY PATIENTS ONLY ORAL SCH (08:42)
[2016-04-04] MEDS: Enoxaparin 40mg Inj SUBQ SCH (08:47)
[2016-04-04] MEDS: Norco 10mg/325mg tab ORAL PRN (10:07)
--- NOTE | 2016-04-04 10:10 | General Progress Note ---
Assessment/Plan Assessment/Plan (1) Right hip Fx (2) Right hip intractable pain (3) S/p ORIF The patient will be continued on the morphine, [place] and Robaxin. The patient was discussed with Dr. Chavez and Dr. Chavez concurred. Subjective Date patient seen: Apr 04, 2016 Time patient seen: 08:00 - am Allergies: Coded Allergies: PENICILLINS (Unverified Allergy, Unknown, 03/30/16) Subjective REVIEW OF SYSTEMS: Denies rash, fever, chills, sweating, dizziness, drowsiness, blurred vision, sore throat, or change in hearing or weight. No shortness of breath, chest pain, palpitations, or cough. No bowel or bladder incontinence. C/o right hip pain SUBJECTIVE: Pain at rest is mild with movement pain increases to a 5/10 and is reduced to a 0 with the pain medication. She is doing PT to the best of her abilities. Objective Last 24 Hour Vital Signs Date Time Temp Pulse Resp B/P Pulse Ox O2 Delivery O2 Flow Rate FiO2 04/04/16 04:09 98.7 68 18 119/66 94 Room Air 04/04/16 00:13 97.3 61 19 121/60 98 Room Air 04/03/16 20:00 97.0 75 18 147/56 95 Room Air 04/03/16 19:44 96 Room Air 04/03/16 19:44 Room Air 04/03/16 16:00 97.5 70 19 122/69 96 Room Air 04/03/16 11:36 97.9 67 18 131/80 95 Room Air Intake and Output 04/03/16 04/04/16 19:00 07:00 Intake Total 530 ml 350 ml Output Total 400 ml Balance 130 ml 350 ml Intake Oral 480 ml 300 ml IV Total 50 ml 50 ml Output Urine Total 400 ml # Voids 5 Height (Feet): 5 Height (Inches): 7.00 Weight (Pounds): 170 Objective PHYSICAL EXAMINATION: GENERAL: The patient is alert, awake, and oriented x3. HEENT: PERRLA. NECK: Range of motion is full in all directions. No tenderness to paracervical muscles. No adenopathy. LUNGS: Clear. HEART: Regular. ABDOMEN: Benign. EXTREMITIES: Lower extremity range of motion is decreased due to the patient's pain and condition. Tenderness to palpation in the right hip bandages applied NEURO: No changes GEORGINA SAUL Apr 04, 2016 10:10
[2016-04-04 11:57] VITALS: BP 103/64
--- NOTE | 2016-04-04 13:06 | General Progress Note ---
Assessment/Plan Problem List: (1) Hip fracture ICD Codes: S72.009A - Fracture of unspecified part of neck of unspecified femur , initial encounter for closed fracture SNOMED: [id number] Status: progressing Assessment/Plan hip orif by ortho dc per ortho dr aliza pena to which ever otho wants the patient to go no change Subjective ROS Limited/Unobtainable: Yes Allergies: Coded Allergies: PENICILLINS (Unverified Allergy, Unknown, 03/30/16) Objective Last 24 Hour Vital Signs Date Time Temp Pulse Resp B/P Pulse Ox O2 Delivery O2 Flow Rate FiO2 04/04/16 11:57 97.2 67 18 103/64 95 Room Air 04/04/16 08:00 97.9 57 18 123/66 100 Room Air 04/04/16 04:09 98.7 68 18 119/66 94 Room Air 04/04/16 00:13 97.3 61 19 121/60 98 Room Air 04/03/16 20:00 97.0 75 18 147/56 95 Room Air 04/03/16 19:44 96 Room Air 04/03/16 19:44 Room Air 04/03/16 16:00 97.5 70 19 122/69 96 Room Air Intake and Output 04/03/16 04/04/16 19:00 07:00 Intake Total 530 ml 350 ml Output Total 400 ml Balance 130 ml 350 ml Intake Oral 480 ml 300 ml IV Total 50 ml 50 ml Output Urine Total 400 ml # Voids 5 Height (Feet): 5 Height (Inches): 7.00 Weight (Pounds): 170 Perry Santiago MD Apr 04, 2016 13:06
[2016-04-04 16:00] VITALS: BP 113/53
[2016-04-04 20:00] VITALS: BP 132/73
[2016-04-04 20:27] LABS: LYMPHOCYTES % (AUTO) 20.6 % (20.0-45.0); MEAN CORPUSCULAR HEMOGLOBIN 30.6 PG (27.0-31.0); MEAN CORPUSCULAR HGB CONC 33.3 G/DL (32.0-36.0); MEAN CORPUSCULAR VOLUME 92 FL (80-99); MEAN PLATELET VOLUME 6.6 FL (6.5-10.1); MONOCYTES % (AUTO) 5.5 % (1.0-10.0); NEUTROPHILS % (AUTO) 70.9 % (45.0-75.0); PLATELET COUNT 312 K/UL (150-450); RED BLOOD COUNT 3.91 M/UL (4.20-5.40); RED CELL DISTRIBUTION WIDTH 12.2 % (11.6-14.8); WHITE BLOOD COUNT 11.2 K/UL (4.8-10.8)
[2016-04-04 20:54] LABS: ALANINE AMINOTRANSFERASE 14 U/L (3-33); ALBUMIN/GLOBULIN RATIO 1.1 (1.0-2.7); ANION GAP 12 (5-15); ASPARTATE AMINO TRANSFERASE 12 U/L (5-40); CALCIUM 9.7 mg/dL (8.6-10.2); CARBON DIOXIDE 28 mEQ/L (20-30); CHLORIDE 99 mEQ/L (98-107); CREATININE 0.7 mg/dL (0.5-0.9); HEMOLYSIS 2; POTASSIUM 4.5 mEQ/L (3.4-4.9); SODIUM 139 mEQ/L (135-145); TOTAL PROTEIN 6.8 g/dL (6.6-8.7)
[2016-04-05] VITALS (7 sets, daily range): BP systolic 96–126; BP diastolic 49–84
[2016-04-05] MEDS: Norco 10mg/325mg tab ORAL PRN ×2 (02:58→22:21)
--- NOTE | 2016-04-05 07:43 | General Progress Note ---
Assessment/Plan Assessment/Plan (1) Right hip Fx (2) Right hip intractable pain (3) S/p ORIF The patient will be continued on the morphine, [place] and Robaxin. The patient was discussed with Dr. Chavez and Dr. Chavez concurred. Subjective Date patient seen: Apr 05, 2016 Time patient seen: 07:00 - am Allergies: Coded Allergies: PENICILLINS (Unverified Allergy, Unknown, 03/30/16) Subjective REVIEW OF SYSTEMS: Denies rash, fever, chills, sweating, dizziness, drowsiness, blurred vision, sore throat, or change in hearing or weight. No shortness of breath, chest pain, palpitations, or cough. No bowel or bladder incontinence. C/o right hip pain SUBJECTIVE: Her pain has been positional and with PT at rest it is stable and tolerated on the medications. Objective Last 24 Hour Vital Signs Date Time Temp Pulse Resp B/P Pulse Ox O2 Delivery O2 Flow Rate FiO2 04/05/16 04:09 98.6 63 19 126/69 95 Room Air 04/05/16 03:57 97.9 04/05/16 00:17 97.9 73 18 118/64 96 Room Air 04/04/16 20:00 98.1 61 18 132/73 93 Room Air 04/04/16 16:00 57 18 113/53 94 04/04/16 11:57 97.2 67 18 103/64 95 Room Air 04/04/16 08:00 97.9 57 18 123/66 100 Room Air Intake and Output 04/04/16 04/05/16 19:00 07:00 Intake Total 600 ml Balance 600 ml Intake Oral 600 ml # Voids 2 2 Laboratory Tests 04/04/16 20:00: White Blood Count 11.2H, Red Blood Count 3.91L, Hemoglobin 12.0, Hematocrit 36.0L, Mean Corpuscular Volume 92, Mean Corpuscular Hemoglobin 30.6, Mean Corpuscular Hemoglobin Concent 33.3, Red Cell Distribution Width 12.2, Platelet Count 312, Mean Platelet Volume 6.6, Neutrophils (%) (Auto) 70.9, Lymphocytes (% ) (Auto) 20.6, Monocytes (%) (Auto) 5.5, Eosinophils (%) (Auto) 2.0, Basophils ( %) (Auto) 1.0, Sodium Level 139, Potassium Level 4.5, Chloride Level 99, Carbon Dioxide Level 28, Anion Gap 12, Blood Urea Nitrogen 20, Creatinine 0.7, Estimat Glomerular Filtration Rate , Glucose Level 111H, Calcium Level 9.7, Total Bilirubin 0.4, Aspartate Amino Transf (AST/SGOT) 12, Alanine Aminotransferase ( ALT/SGPT) 14, Alkaline Phosphatase 69, Total Protein 6.8, Albumin 3.6, Globulin 3.2, Albumin/Globulin Ratio 1.1 Height (Feet): 5 Height (Inches): 7.00 Weight (Pounds): 170 Objective PHYSICAL EXAMINATION: GENERAL: The patient is alert, awake, and oriented x3. HEENT: PERRLA. NECK: Range of motion is full in all directions. No tenderness to paracervical muscles. No adenopathy. LUNGS: Clear. HEART: Regular. ABDOMEN: Benign. EXTREMITIES: Lower extremity range of motion is decreased due to the patient's pain and condition. Tenderness to palpation in the right hip bandages applied NEURO: No changes GEORGINA SAUL Apr 05, 2016 07:43
[2016-04-05] MEDS: Pericolace tab ORAL SCH ×2 (08:16→17:47)
[2016-04-05] MEDS: celeBREX 200mg Cap **SURGERY PATIENTS ONLY ORAL SCH (08:16)
[2016-04-05] MEDS: Enoxaparin 40mg Inj SUBQ SCH (08:21)
--- NOTE | 2016-04-05 09:28 | History and Physical Report ---
DATE OF ADMISSION: 03/30/2016 HISTORY OF PRESENT ILLNESS: The patient basically came in with right intratrochanteric fracture, is here for ORIF. The patient complains of pain at the fracture site. Denies nausea, vomiting, or diarrhea. No shortness of breath. No chest pain. PAST MEDICAL HISTORY: Hypertension. ALLERGIES: Penicillin. SOCIAL HISTORY: The patient smokes. Denies history of illicit drugs or alcohol abuse. FAMILY HISTORY: Noncontributory. REVIEW OF SYSTEMS: HEENT: Denies headache. Respiratory: Denies shortness of breath. No cough. Cardiovascular: Denies chest pain. No orthopnea. Gastrointestinal: Denies nausea, vomiting, or diarrhea. Extremities: Complains of pain where the fracture is. PHYSICAL EXAMINATION: VITAL SIGNS: Temperature is 97.9 degrees, pulse 83, and blood pressure 119/65. HEENT: PERRLA. NECK: Supple. No lymphadenopathy. CHEST: Clear to auscultation. GASTROINTESTINAL: Soft, nontender, and nondistended. EXTREMITIES: Decreased range of motion of the hip due to pain. Otherwise reflexes are equal. LABORATORY DATA: WBC is 9.9, hemoglobin 13.4, and platelets 263,000. Sodium is 138, potassium 4.3, BUN 19, creatinine 0.8. Glucose is 130. ASSESSMENT AND PLAN: Intertrochanteric fracture. Dr. Wright will be the one doing the operation. Dr. Solis will be in charge of the cardiac clearance. Dr. Chavez and have also been consulted for pain control and for IV fluid management and for discharge will be decided by the orthopedic surgeon. Perry Santiago M.D. DR: Robert JOB#: [id number] CC:
--- NOTE | 2016-04-05 10:56 | Cardiac Electrophysiology PN ---
Assessment/Plan Status Narrative Normal left ventricular chamber size, hyperdynamic systolic function and wall motion. Left ventricular ejection fraction estimated to be 70-75 %. Mild left ventricular hypertrophy. Anterior Echo-free space, may be due to pericardial fat or effusion. All other cardiac chamber sizes are within normal limits. Focal aortic valve sclerosis with adequate cusp excursion. Thickened mitral valve leaflets with normal excursion. Mitral annulus and aortic root calcification. Pulmonic valve not well visualized. Normal tricuspid valve structure. IVC dilated at 2.1 cm with slight physiologic collapse suggestive of mildly increased RA pressure. Assessment/Plan 1. Status post fall without syncope. EF 75% no 2. Transient tachy due to atrial tach/fib that was resolved with no recurrence on tele. 3. BP in 90s. OFF any BP meds. Likely dehydrated. Will give IV fluid NS 250 cc. 4. S/P ORIF right hip DW RN Subjective Subjective No chest pain or SOB. BP was low this am in 80s. Off tele. Objective Last 24 Hour Vital Signs Date Time Temp Pulse Resp B/P Pulse Ox O2 Delivery O2 Flow Rate FiO2 04/05/16 08:09 96.3 53 18 99/49 97 Room Air 04/05/16 04:09 98.6 63 19 126/69 95 Room Air 04/05/16 03:57 97.9 04/05/16 00:17 97.9 73 18 118/64 96 Room Air 04/04/16 20:00 98.1 61 18 132/73 93 Room Air 04/04/16 16:00 57 18 113/53 94 04/04/16 11:57 97.2 67 18 103/64 95 Room Air Intake and Output 04/04/16 04/05/16 19:00 07:00 Intake Total 600 ml Balance 600 ml Intake Oral 600 ml # Voids 2 2 Laboratory Tests Test 04/04/16 20:00 White Blood Count 11.2 K/UL (4.8-10.8) H Red Blood Count 3.91 M/UL (4.20-5.40) L Hemoglobin 12.0 G/DL (12.0-16.0) Hematocrit 36.0 % (37.0-47.0) L Mean Corpuscular Volume 92 FL (80-99) Mean Corpuscular Hemoglobin 30.6 PG (27.0-31.0) Mean Corpuscular Hemoglobin Concent 33.3 G/DL (32.0-36.0) Red Cell Distribution Width 12.2 % (11.6-14.8) Platelet Count 312 K/UL (150-450) Mean Platelet Volume 6.6 FL (6.5-10.1) Neutrophils (%) (Auto) 70.9 % (45.0-75.0) Lymphocytes (%) (Auto) 20.6 % (20.0-45.0) Monocytes (%) (Auto) 5.5 % (1.0-10.0) Eosinophils (%) (Auto) 2.0 % (0.0-3.0) Basophils (%) (Auto) 1.0 % (0.0-2.0) Sodium Level 139 mEQ/L (135-145) Potassium Level 4.5 mEQ/L (3.4-4.9) Chloride Level 99 mEQ/L (98-107) Carbon Dioxide Level 28 mEQ/L (20-30) Anion Gap 12 (5-15) Blood Urea Nitrogen 20 mg/dL (7-23) Creatinine 0.7 mg/dL (0.5-0.9) Estimat Glomerular Filtration Rate mL/min (>60) Glucose Level 111 mg/dL (74-106) H Calcium Level 9.7 mg/dL (8.6-10.2) Total Bilirubin 0.4 mg/dL (0.0-1.2) Aspartate Amino Transf (AST/SGOT) 12 U/L (5-40) Alanine Aminotransferase (ALT/SGPT) 14 U/L (3-33) Alkaline Phosphatase 69 U/L (35-104) Total Protein 6.8 g/dL (6.6-8.7) Albumin 3.6 g/dL (3.5-5.2) Globulin 3.2 g/dL Albumin/Globulin Ratio 1.1 (1.0-2.7) Objective HEAD AND NECK: No JVD or carotid bruits. LUNGS: Clear. CARDIOVASCULAR: Regular S1 and S2 with no gallop or murmur. ABDOMEN: Soft and nontender. EXTREMITIES: No pitting edema. S/P Right hip ORIF DAGMAR BENAVIDES Apr 05, 2016 10:56
[2016-04-05] MEDS ORDERED: NS 250 ML IVPB ONE (11:15)
--- NOTE | 2016-04-05 11:21 | General Progress Note ---
Assessment/Plan Problem List: (1) Hip fracture ICD Codes: S72.009A - Fracture of unspecified part of neck of unspecified femur , initial encounter for closed fracture SNOMED: 632558690 Status: progressing Assessment/Plan hip orif by ortho dc per ortho dr abrams dc to which ever aydeeho wants the patient to g spoke at lenght to daughter and explained toher that i gave dc to snf days ago to rn and she needs to contact dr ortez and case management to find out why she is not dc yet so dc plan per dr neelima campbell so needs to go to [facility] dr ortez orders Subjective Allergies: Coded Allergies: PENICILLINS (Unverified Allergy, Unknown, 03/30/16) Objective Last 24 Hour Vital Signs Date Time Temp Pulse Resp B/P Pulse Ox O2 Delivery O2 Flow Rate FiO2 04/05/16 08:09 96.3 53 18 99/49 97 Room Air 04/05/16 04:09 98.6 63 19 126/69 95 Room Air 04/05/16 03:57 97.9 04/05/16 00:17 97.9 73 18 118/64 96 Room Air 04/04/16 20:00 98.1 61 18 132/73 93 Room Air 04/04/16 16:00 57 18 113/53 94 04/04/16 11:57 97.2 67 18 103/64 95 Room Air Intake and Output 04/04/16 04/05/16 19:00 07:00 Intake Total 600 ml Balance 600 ml Intake Oral 600 ml # Voids 2 2 Laboratory Tests 04/04/16 20:00: White Blood Count 11.2H, Red Blood Count 3.91L, Hemoglobin 12.0, Hematocrit 36.0L, Mean Corpuscular Volume 92, Mean Corpuscular Hemoglobin 30.6, Mean Corpuscular Hemoglobin Concent 33.3, Red Cell Distribution Width 12.2, Platelet Count 312, Mean Platelet Volume 6.6, Neutrophils (%) (Auto) 70.9, Lymphocytes (% ) (Auto) 20.6, Monocytes (%) (Auto) 5.5, Eosinophils (%) (Auto) 2.0, Basophils ( %) (Auto) 1.0, Sodium Level 139, Potassium Level 4.5, Chloride Level 99, Carbon Dioxide Level 28, Anion Gap 12, Blood Urea Nitrogen 20, Creatinine 0.7, Estimat Glomerular Filtration Rate , Glucose Level 111H, Calcium Level 9.7, Total Bilirubin 0.4, Aspartate Amino Transf (AST/SGOT) 12, Alanine Aminotransferase ( ALT/SGPT) 14, Alkaline Phosphatase 69, Total Protein 6.8, Albumin 3.6, Globulin 3.2, Albumin/Globulin Ratio 1.1 Height (Feet): 5 Height (Inches): 7.00 Weight (Pounds): 170 Perry Santiago MD Apr 05, 2016 11:21
[2016-04-06 04:00] VITALS: BP 139/67
--- NOTE | 2016-04-06 08:08 | General Progress Note ---
Assessment/Plan Assessment/Plan (1) Right hip Fx (2) Right hip intractable pain (3) S/p ORIF The patient will be continued on the morphine, [place] and Robaxin. The patient was discussed with Dr. Chavez and Dr. Chavez concurred. Subjective Date patient seen: Apr 06, 2016 Time patient seen: 07:45 - am Allergies: Coded Allergies: PENICILLINS (Unverified Allergy, Unknown, 03/30/16) Subjective REVIEW OF SYSTEMS: Denies rash, fever, chills, sweating, dizziness, drowsiness, blurred vision, sore throat, or change in hearing or weight. No shortness of breath, chest pain, palpitations, or cough. No bowel or bladder incontinence. C/o right hip pain SUBJECTIVE: She is in bed rating pain a 3/10 at this time uses [place] and morphine as needed. Pt has been doing PT to the best of her abilities. Objective Last 24 Hour Vital Signs Date Time Temp Pulse Resp B/P Pulse Ox O2 Delivery O2 Flow Rate FiO2 04/06/16 04:00 97.7 66 20 139/67 96 Room Air 04/05/16 23:17 97.9 67 20 117/84 96 Room Air 04/05/16 20:00 97.7 65 20 114/68 94 Room Air 04/05/16 16:00 97.3 62 19 96/53 94 Room Air 04/05/16 11:28 97.2 60 18 113/79 95 Room Air 04/05/16 08:09 96.3 53 18 99/49 97 Room Air Intake and Output 04/05/16 04/06/16 19:00 07:00 Intake Total 1829 ml Output Total 300 ml Balance 1829 ml -300 ml Intake Oral 830 ml IV Total 999 ml Output Urine Total 300 ml # Voids 2 3 # Bowel Movements 2 Height (Feet): 5 Height (Inches): 7.00 Weight (Pounds): 170 Objective PHYSICAL EXAMINATION: GENERAL: The patient is alert, awake, and oriented x3. HEENT: PERRLA. NECK: Range of motion is full in all directions. No tenderness to paracervical muscles. No adenopathy. LUNGS: Clear. HEART: Regular. ABDOMEN: Benign. EXTREMITIES: Lower extremity range of motion is decreased due to the patient's pain and condition. Tenderness to palpation in the right hip bandages applied NEURO: No changes GEORGINA SAUL Apr 06, 2016 08:08
[2016-04-06] MEDS: Pericolace tab ORAL SCH ×2 (08:10→17:42)
[2016-04-06] MEDS: celeBREX 200mg Cap **SURGERY PATIENTS ONLY ORAL SCH (08:11)
[2016-04-06] MEDS: Enoxaparin 40mg Inj SUBQ SCH (08:14)
[2016-04-06 08:28] VITALS: BP 126/68
[2016-04-06 12:05] VITALS: BP 126/67
--- NOTE | 2016-04-06 12:47 | General Progress Note ---
Assessment/Plan Problem List: (1) Hip fracture ICD Codes: S72.009A - Fracture of unspecified part of neck of unspecified femur , initial encounter for closed fracture SNOMED: 338374549 Assessment/Plan hip orif by ortho dc per ortho dr abrams dc to which ever otho wants the patient to g spoke at lenght to daughter and explained toher that i gave dc to snf days ago to rn and she needs to contact dr ortez and case management to find out why she is not dc yet so dc plan per dr neelima campbell so needs to go to [facility] orte[facility] orders awaiting placment ot rehab Subjective Allergies: Coded Allergies: PENICILLINS (Unverified Allergy, Unknown, 03/30/16) Subjective hip pain Objective Last 24 Hour Vital Signs Date Time Temp Pulse Resp B/P Pulse Ox O2 Delivery O2 Flow Rate FiO2 04/06/16 12:05 97.4 69 18 126/67 95 Room Air 04/06/16 08:28 97.5 68 18 126/68 96 Room Air 04/06/16 04:00 97.7 66 20 139/67 96 Room Air 04/05/16 23:17 97.9 67 20 117/84 96 Room Air 04/05/16 20:00 97.7 65 20 114/68 94 Room Air 04/05/16 16:00 97.3 62 19 96/53 94 Room Air Intake and Output 04/05/16 04/06/16 19:00 07:00 Intake Total 1829 ml Output Total 300 ml Balance 1829 ml -300 ml Intake Oral 830 ml IV Total 999 ml Output Urine Total 300 ml # Voids 2 3 # Bowel Movements 2 Height (Feet): 5 Height (Inches): 7.00 Weight (Pounds): 170 Perry Santiago MD Apr 06, 2016 12:47
[2016-04-06 16:00] VITALS: BP 113/70
--- NOTE | 2016-04-06 16:22 | Cardiac Electrophysiology PN ---
Assessment/Plan Status Narrative Normal left ventricular chamber size, hyperdynamic systolic function and wall motion. Left ventricular ejection fraction estimated to be 70-75 %. Mild left ventricular hypertrophy. Anterior Echo-free space, may be due to pericardial fat or effusion. All other cardiac chamber sizes are within normal limits. Focal aortic valve sclerosis with adequate cusp excursion. Thickened mitral valve leaflets with normal excursion. Mitral annulus and aortic root calcification. Pulmonic valve not well visualized. Normal tricuspid valve structure. IVC dilated at 2.1 cm with slight physiologic collapse suggestive of mildly increased RA pressure. Assessment/Plan 1. Status post fall without syncope. EF 75% no 2. Transient tachy due to atrial tach/fib that was resolved with no recurrence on tele. 3. BP in 90s. OFF any BP meds. Better with IV fluid. 4. S/P ORIF right hip Awaiting Rehab SALOMON RN Subjective Subjective No chest pain or SOB. Off tele.Awaiting Rehab Objective Last 24 Hour Vital Signs Date Time Temp Pulse Resp B/P Pulse Ox O2 Delivery O2 Flow Rate FiO2 04/06/16 12:05 97.4 69 18 126/67 95 Room Air 04/06/16 08:28 97.5 68 18 126/68 96 Room Air 04/06/16 04:00 97.7 66 20 139/67 96 Room Air 04/05/16 23:17 97.9 67 20 117/84 96 Room Air 04/05/16 20:00 97.7 65 20 114/68 94 Room Air Intake and Output 04/05/16 04/06/16 19:00 07:00 Intake Total 1829 ml Output Total 300 ml Balance 1829 ml -300 ml Intake Oral 830 ml IV Total 999 ml Output Urine Total 300 ml # Voids 2 3 # Bowel Movements 2 Objective HEAD AND NECK: No JVD or carotid bruits. LUNGS: Clear. CARDIOVASCULAR: Regular S1 and S2 with no gallop or murmur. ABDOMEN: Soft and nontender. EXTREMITIES: No pitting edema. S/P Right hip ORIF DAGMAR BENAVIDES Apr 06, 2016 16:22
[2016-04-06 20:00] VITALS: BP 121/76
[2016-04-06] MEDS: Norco 10mg/325mg tab ORAL PRN (21:26)
[2016-04-07 00:12] VITALS: BP 119/55
[2016-04-07 04:08] VITALS: BP 112/60
--- NOTE | 2016-04-07 08:00 | General Progress Note ---
Assessment/Plan Assessment/Plan (1) Right hip Fx (2) Right hip intractable pain (3) S/p ORIF The patient will be continued on the morphine, [place] and Robaxin. The patient was discussed with Dr. Chavez and Dr. Chavez concurred. Subjective Date patient seen: Apr 07, 2016 Time patient seen: 07:30 - am Allergies: Coded Allergies: PENICILLINS (Unverified Allergy, Unknown, 03/30/16) Subjective REVIEW OF SYSTEMS: Denies rash, fever, chills, sweating, dizziness, drowsiness, blurred vision, sore throat, or change in hearing or weight. No shortness of breath, chest pain, palpitations, or cough. No bowel or bladder incontinence. C/o right hip pain SUBJECTIVE: Pts pain has been stable and tolerated well on the medications She continues to do PT to the best of her abilities and is waiting to be transferred to rehab. Objective Last 24 Hour Vital Signs Date Time Temp Pulse Resp B/P Pulse Ox O2 Delivery O2 Flow Rate FiO2 04/07/16 04:08 98.4 54 18 112/60 99 Nasal Cannula 2.0 04/07/16 00:12 98.6 58 19 119/55 94 Room Air 04/06/16 22:25 97.2 04/06/16 20:00 97.2 59 18 121/76 96 Room Air 04/06/16 16:00 97.5 59 18 113/70 94 Room Air 04/06/16 12:05 97.4 69 18 126/67 95 Room Air 04/06/16 08:28 97.5 68 18 126/68 96 Room Air Intake and Output 04/06/16 04/07/16 18:59 06:59 Intake Total 240 ml Output Total 550 ml 2 ml Balance -310 ml -2 ml Intake Oral 240 ml Output Urine Total 550 ml 2 ml # Voids 1 # Bowel Movements 1 Height (Feet): 5 Height (Inches): 7.00 Weight (Pounds): 170 Objective PHYSICAL EXAMINATION: GENERAL: The patient is alert, awake, and oriented x3. HEENT: PERRLA. NECK: Range of motion is full in all directions. No tenderness to paracervical muscles. No adenopathy. LUNGS: Clear. HEART: Regular. ABDOMEN: Benign. EXTREMITIES: Lower extremity range of motion is decreased due to the patient's pain and condition. Tenderness to palpation in the right hip bandages applied NEURO: No changes GEORGINA SAUL Apr 07, 2016 08:00
[2016-04-07 08:36] VITALS: BP 93/62
[2016-04-07] MEDS: celeBREX 200mg Cap **SURGERY PATIENTS ONLY ORAL SCH (08:45)
[2016-04-07] MEDS: Pericolace tab ORAL SCH ×2 (08:45→18:07)
[2016-04-07] MEDS: Enoxaparin 40mg Inj SUBQ SCH (08:50)
[2016-04-07] MEDS ORDERED: Morphine Sulfate 2mg/ml Inj IVP PRN (09:32)
[2016-04-07] MEDS ORDERED: Morphine Sulfate 4mg/ml Inj IVP PRN (09:32)
[2016-04-07] MEDS ORDERED: PERI-COLACE1 EA ORAL (10:33)
[2016-04-07] MEDS ORDERED: LOVENOX40 MG/0.4 SUBQ (10:34)
[2016-04-07] MEDS ORDERED: FERROUS SULFAT325 M2 ORAL (10:34)
[2016-04-07] MEDS ORDERED: NORCO 10/3251 EA ORAL (10:35)
[2016-04-07] MEDS ORDERED: ROBAXIN500 MG PO ×3 (10:36→10:41)
[2016-04-07] MEDS ORDERED: MOM30 ML ORAL (10:39)
[2016-04-07] MEDS ORDERED: ZOFRAN4 M1 ORAL (10:39)
[2016-04-07] MEDS ORDERED: TEMAZEPAM7.5 MG ORAL (10:40)
--- NOTE | 2016-04-07 11:33 | General Progress Note ---
Assessment/Plan Problem List: (1) Hip fracture ICD Codes: S72.009A - Fracture of unspecified part of neck of unspecified femur , initial encounter for closed fracture SNOMED: 925562386 Assessment/Plan per cm dawson going to snf today needs f/u w dr ortez Subjective ROS Limited/Unobtainable: Yes Constitutional: Reports: no symptoms Allergies: Coded Allergies: PENICILLINS (Unverified Allergy, Unknown, 03/30/16) Subjective hip pain Objective Last 24 Hour Vital Signs Date Time Temp Pulse Resp B/P Pulse Ox O2 Delivery O2 Flow Rate FiO2 04/07/16 08:36 97.0 58 18 93/62 97 Room Air 04/07/16 04:08 98.4 54 18 112/60 99 Nasal Cannula 2.0 04/07/16 00:12 98.6 58 19 119/55 94 Room Air 04/06/16 22:25 97.2 04/06/16 20:00 97.2 59 18 121/76 96 Room Air 04/06/16 16:00 97.5 59 18 113/70 94 Room Air 04/06/16 12:05 97.4 69 18 126/67 95 Room Air Intake and Output 04/06/16 04/07/16 19:00 07:00 Intake Total 240 ml Output Total 550 ml 2 ml Balance -310 ml -2 ml Intake Oral 240 ml Output Urine Total 550 ml 2 ml # Voids 1 # Bowel Movements 1 Height (Feet): 5 Height (Inches): 7.00 Weight (Pounds): 170 EENT: PERRL/EOMI Neck: supple Cardiovascular: normal rate Respiratory/Chest: lungs clear Abdomen: soft Perry Santiago MD Apr 07, 2016 11:33
[2016-04-07 12:53] VITALS: BP 120/47
--- NOTE | 2016-04-07 14:32 | Cardiac Electrophysiology PN ---
Assessment/Plan Status Narrative Normal left ventricular chamber size, hyperdynamic systolic function and wall motion. Left ventricular ejection fraction estimated to be 70-75 %. Mild left ventricular hypertrophy. Anterior Echo-free space, may be due to pericardial fat or effusion. All other cardiac chamber sizes are within normal limits. Focal aortic valve sclerosis with adequate cusp excursion. Thickened mitral valve leaflets with normal excursion. Mitral annulus and aortic root calcification. Pulmonic valve not well visualized. Normal tricuspid valve structure. IVC dilated at 2.1 cm with slight physiologic collapse suggestive of mildly increased RA pressure. Assessment/Plan 1. Status post fall without syncope. EF 75% no 2. Transient tachy due to atrial tach/fib that was resolved with no recurrence on tele. 3. Hypotension. Resolved 4. S/P ORIF right hip. SALOMON RN DC planning today Subjective Subjective No chest pain, palpitation or SOB.Expecting DC today to SN[facility] Objective Last 24 Hour Vital Signs Date Time Temp Pulse Resp B/P Pulse Ox O2 Delivery O2 Flow Rate FiO2 04/07/16 12:53 97.5 57 18 120/47 95 Room Air 04/07/16 08:36 97.0 58 18 93/62 97 Room Air 04/07/16 04:08 98.4 54 18 112/60 99 Nasal Cannula 2.0 04/07/16 00:12 98.6 58 19 119/55 94 Room Air 04/06/16 22:25 97.2 04/06/16 20:00 97.2 59 18 121/76 96 Room Air 04/06/16 16:00 97.5 59 18 113/70 94 Room Air Intake and Output 04/06/16 04/07/16 19:00 07:00 Intake Total 240 ml Output Total 550 ml 2 ml Balance -310 ml -2 ml Intake Oral 240 ml Output Urine Total 550 ml 2 ml # Voids 1 # Bowel Movements 1 Current Medications Medications (Trade) Dose Ordered Sig/Bryan Route PRN Reason Start Time Stop Time Status Last Admin Dose Admin Acetaminophen/ Hydrocodone Bitart ([place] 10/325) 1 ea Q4H PRN ORAL moderate pain 04/07/16 09:32 04/14/16 09:31 Celecoxib (CeleBREX) 200 mg DAILY ORAL 04/02/16 09:00 05/02/16 08:59 04/07/16 08:45 Enoxaparin Sodium (Lovenox) 40 mg DAILY SUBQ 04/02/16 09:00 04/12/16 08:59 04/07/16 08:50 Ferrous Sulfate (Feosol) 325 mg THREE TIMES A DAY ORAL 04/02/16 09:00 05/02/16 08:59 04/07/16 12:04 Magnesium Hydroxide (Mom) 30 ml DAILYPRN PRN ORAL Constipation 04/01/16 19:15 05/01/16 19:14 Methocarbamol (Robaxin) 500 mg Q8H PRN ORAL muscle spasm 04/01/16 18:00 05/01/16 17:59 04/04/16 10:07 Metoclopramide HCl (Reglan) 10 mg Q6HR PRN IVP Nausea & Vomiting 04/01/16 18:00 05/01/16 17:59 Morphine Sulfate (Morphine Sulfate) 2 mg Q3H PRN IVP Moderate Breakthru Pain (4-6) 04/07/16 09:32 04/14/16 09:31 Morphine Sulfate (Morphine Sulfate) 4 mg Q3H PRN IVP Severe Pain (Pain Scale 7-10) 04/07/16 09:32 04/14/16 09:31 Ondansetron HCl (Zofran) 4 mg Q6HR PRN IVP Nausea & Vomiting 04/01/16 18:00 05/01/16 17:59 Prochlorperazine (Compazine) 10 mg Q6H PRN IVP Nausea & Vomiting 04/01/16 19:15 05/01/16 19:14 Senna/Docusate Sodium (Rosalinda-Colace) 1 ea TWICE A DAY ORAL 04/02/16 09:00 05/02/16 08:59 04/07/16 08:45 Temazepam (Restoril) 7.5 mg DAILY PRN ORAL Insomnia 04/02/16 09:00 04/09/16 08:59 Objective HEAD AND NECK: No JVD or carotid bruits. LUNGS: Clear. CARDIOVASCULAR: Regular S1 and S2 with no gallop or murmur. ABDOMEN: Soft and nontender. EXTREMITIES: No pitting edema. S/P Right hip ORIF DAGMAR BENAVIDES Apr 07, 2016 14:32
[2016-04-07 16:00] VITALS: BP 131/68
[2016-04-07 20:00] VITALS: BP 115/60
[2016-04-07] MEDS: Norco 10mg/325mg tab ORAL PRN (21:59)
[2016-04-08 00:12] VITALS: BP 114/63
[2016-04-08 04:06] VITALS: BP 120/69
[2016-04-08 08:30] VITALS: BP 106/58
--- NOTE | 2016-04-08 08:31 | General Progress Note ---
Assessment/Plan Assessment/Plan (1) Right hip Fx (2) Right hip intractable pain (3) S/p ORIF The patient will be continued on the morphine, [place] and Robaxin. The patient was discussed with Dr. Chavez and Dr. Chavez concurred. Subjective Date patient seen: Apr 08, 2016 Time patient seen: 07:15 - am Allergies: Coded Allergies: PENICILLINS (Unverified Allergy, Unknown, 03/30/16) Subjective REVIEW OF SYSTEMS: Denies rash, fever, chills, sweating, dizziness, drowsiness, blurred vision, sore throat, or change in hearing or weight. No shortness of breath, chest pain, palpitations, or cough. No bowel or bladder incontinence. C/o right hip pain SUBJECTIVE: Pain has been stable at times it may reach a 4-5/10 and reduced on the current medications. Doing PT to the best of her abilities. Objective Last 24 Hour Vital Signs Date Time Temp Pulse Resp B/P Pulse Ox O2 Delivery O2 Flow Rate FiO2 04/08/16 04:06 98.8 59 19 120/69 94 Room Air 04/08/16 00:12 98.5 56 18 114/63 97 Room Air 04/07/16 22:58 97.7 04/07/16 20:00 97.7 63 18 115/60 96 Room Air 04/07/16 16:00 97.2 78 18 131/68 96 Room Air 04/07/16 12:53 97.5 57 18 120/47 95 Room Air 04/07/16 08:36 97.0 58 18 93/62 97 Room Air Intake and Output 04/07/16 04/08/16 19:00 07:00 Intake Total 240 ml Output Total 550 ml Balance -310 ml Intake Oral 240 ml Output Urine Total 550 ml # Voids 1 Height (Feet): 5 Height (Inches): 7.00 Weight (Pounds): 170 Objective PHYSICAL EXAMINATION: GENERAL: The patient is alert, awake, and oriented x3. HEENT: PERRLA. NECK: Range of motion is full in all directions. No tenderness to paracervical muscles. No adenopathy. LUNGS: Clear. HEART: Regular. ABDOMEN: Benign. EXTREMITIES: Lower extremity range of motion is decreased due to the patient's pain and condition. Tenderness to palpation in the right hip bandages applied NEURO: No changes ZEDNER,GEORGINA N. P.A. Apr 08, 2016 08:31
[2016-04-08] MEDS: Enoxaparin 40mg Inj SUBQ SCH (09:00)
[2016-04-08] MEDS: Pericolace tab ORAL SCH ×2 (09:02→19:56)
[2016-04-08] MEDS: celeBREX 200mg Cap **SURGERY PATIENTS ONLY ORAL SCH (09:05)
--- NOTE | 2016-04-08 10:33 | General Progress Note ---
Assessment/Plan Problem List: (1) Hip fracture ICD Codes: S72.009A - Fracture of unspecified part of neck of unspecified femur , initial encounter for closed fracture SNOMED: 086670766 Status: progressing Assessment/Plan stable afebrile needs t ogo to rehab needs f/u w dr ortez Subjective ROS Limited/Unobtainable: Yes Allergies: Coded Allergies: PENICILLINS (Unverified Allergy, Unknown, 03/30/16) Subjective hip pain Objective Last 24 Hour Vital Signs Date Time Temp Pulse Resp B/P Pulse Ox O2 Delivery O2 Flow Rate FiO2 04/08/16 08:30 97.2 58 18 106/58 98 Room Air 04/08/16 04:06 98.8 59 19 120/69 94 Room Air 04/08/16 00:12 98.5 56 18 114/63 97 Room Air 04/07/16 22:58 97.7 04/07/16 20:00 97.7 63 18 115/60 96 Room Air 04/07/16 16:00 97.2 78 18 131/68 96 Room Air 04/07/16 12:53 97.5 57 18 120/47 95 Room Air Intake and Output 04/07/16 04/08/16 19:00 07:00 Intake Total 240 ml Output Total 550 ml Balance -310 ml Intake Oral 240 ml Output Urine Total 550 ml # Voids 1 Height (Feet): 5 Height (Inches): 7.00 Weight (Pounds): 170 Perry Santiago MD Apr 08, 2016 10:33
[2016-04-08 12:18] VITALS: BP 114/63
--- NOTE | 2016-04-08 14:50 | Cardiac Electrophysiology PN ---
Assessment/Plan Status Narrative Normal left ventricular chamber size, hyperdynamic systolic function and wall motion. Left ventricular ejection fraction estimated to be 70-75 %. Mild left ventricular hypertrophy. Anterior Echo-free space, may be due to pericardial fat or effusion. All other cardiac chamber sizes are within normal limits. Focal aortic valve sclerosis with adequate cusp excursion. Thickened mitral valve leaflets with normal excursion. Mitral annulus and aortic root calcification. Pulmonic valve not well visualized. Normal tricuspid valve structure. IVC dilated at 2.1 cm with slight physiologic collapse suggestive of mildly increased RA pressure. Assessment/Plan 1. Status post fall without syncope. EF 75% no 2. Transient atrial tach/fib . Resolved with no recurrence on tele. 3. Hypotension. Resolved 4. S/P ORIF right hip.Awaiting ARU SALOMON RN Subjective Subjective No chest pain, palpitation or SOB.Waking with help of physical therapist. Objective Last 24 Hour Vital Signs Date Time Temp Pulse Resp B/P Pulse Ox O2 Delivery O2 Flow Rate FiO2 04/08/16 12:18 96.9 58 18 114/63 97 Room Air 04/08/16 08:30 97.2 58 18 106/58 98 Room Air 04/08/16 04:06 98.8 59 19 120/69 94 Room Air 04/08/16 00:12 98.5 56 18 114/63 97 Room Air 04/07/16 22:58 97.7 04/07/16 20:00 97.7 63 18 115/60 96 Room Air 04/07/16 16:00 97.2 78 18 131/68 96 Room Air Intake and Output 04/07/16 04/08/16 19:00 07:00 Intake Total 240 ml Output Total 550 ml Balance -310 ml Intake Oral 240 ml Output Urine Total 550 ml # Voids 1 Current Medications Medications (Trade) Dose Ordered Sig/Bryan Route PRN Reason Start Time Stop Time Status Last Admin Dose Admin Acetaminophen/ Hydrocodone Bitart ([place] 10/325) 1 ea Q4H PRN ORAL moderate pain 04/07/16 09:32 04/14/16 09:31 04/07/16 21:59 Celecoxib (CeleBREX) 200 mg DAILY ORAL 04/02/16 09:00 05/02/16 08:59 04/08/16 09:05 Enoxaparin Sodium (Lovenox) 40 mg DAILY SUBQ 04/02/16 09:00 04/12/16 08:59 04/07/16 08:50 Ferrous Sulfate (Feosol) 325 mg THREE TIMES A DAY ORAL 04/02/16 09:00 05/02/16 08:59 04/07/16 18:07 Magnesium Hydroxide (Mom) 30 ml DAILYPRN PRN ORAL Constipation 04/01/16 19:15 05/01/16 19:14 Methocarbamol (Robaxin) 500 mg Q8H PRN ORAL muscle spasm 04/01/16 18:00 05/01/16 17:59 04/04/16 10:07 Metoclopramide HCl (Reglan) 10 mg Q6HR PRN IVP Nausea & Vomiting 04/01/16 18:00 05/01/16 17:59 Morphine Sulfate (Morphine Sulfate) 2 mg Q3H PRN IVP Moderate Breakthru Pain (4-6) 04/07/16 09:32 04/14/16 09:31 Morphine Sulfate (Morphine Sulfate) 4 mg Q3H PRN IVP Severe Pain (Pain Scale 7-10) 04/07/16 09:32 04/14/16 09:31 Ondansetron HCl (Zofran) 4 mg Q6HR PRN IVP Nausea & Vomiting 04/01/16 18:00 05/01/16 17:59 Prochlorperazine (Compazine) 10 mg Q6H PRN IVP Nausea & Vomiting 04/01/16 19:15 05/01/16 19:14 Senna/Docusate Sodium (Rosalinda-Colace) 1 ea TWICE A DAY ORAL 04/02/16 09:00 05/02/16 08:59 04/08/16 09:02 Temazepam (Restoril) 7.5 mg DAILY PRN ORAL Insomnia 04/02/16 09:00 04/09/16 08:59 Objective HEAD AND NECK: No JVD or carotid bruits. LUNGS: Clear. CARDIOVASCULAR: Regular S1 and S2 with no gallop or murmur. ABDOMEN: Soft and nontender. EXTREMITIES: No pitting edema. S/P Right hip ORIF DAGMAR BENAVIDES Apr 08, 2016 14:50
[2016-04-08 16:00] VITALS: BP 122/86
[2016-04-08 20:00] VITALS: BP 120/86
[2016-04-08] MEDS: Norco 10mg/325mg tab ORAL PRN (22:14)
[2016-04-09 00:21] VITALS: BP 110/69
[2016-04-09] MEDS: Pericolace tab ORAL SCH ×2 (08:30→18:00)
[2016-04-09 08:32] VITALS: BP 125/57
[2016-04-09] MEDS: Enoxaparin 40mg Inj SUBQ SCH (08:32)
[2016-04-09] MEDS: celeBREX 200mg Cap **SURGERY PATIENTS ONLY ORAL SCH (08:32)
--- NOTE | 2016-04-09 11:16 | General Progress Note ---
Assessment/Plan Problem List: (1) Hip fracture ICD Codes: S72.009A - Fracture of unspecified part of neck of unspecified femur , initial encounter for closed fracture SNOMED: [id number] Status: progressing Assessment/Plan dc per dr ortez stable medically Subjective Allergies: Coded Allergies: PENICILLINS (Unverified Allergy, Unknown, 03/30/16) Subjective hip pain Objective Last 24 Hour Vital Signs Date Time Temp Pulse Resp B/P Pulse Ox O2 Delivery O2 Flow Rate FiO2 04/09/16 08:32 97.0 59 18 125/57 96 Room Air 04/09/16 00:21 98.5 56 18 110/69 95 Room Air 04/08/16 20:00 97.3 62 19 120/86 98 Room Air 04/08/16 16:00 96.4 64 18 122/86 97 Room Air 04/08/16 12:18 96.9 58 18 114/63 97 Room Air Intake and Output 04/08/16 04/09/16 19:00 07:00 Intake Total 240 ml Balance 240 ml Intake Oral 240 ml # Voids 2 1 Height (Feet): 5 Height (Inches): 7.00 Weight (Pounds): 170 Perry Santiago MD Apr 09, 2016 11:16
--- NOTE | 2016-04-09 11:18 | General Progress Note ---
Assessment/Plan Assessment/Plan (1) Right hip Fx (2) Right hip intractable pain (3) S/p ORIF The patient will be continued on the morphine, [place] and Robaxin. The patient was discussed with Dr. Chavez and Dr. Chavez concurred. Subjective Date patient seen: Apr 09, 2016 Time patient seen: 10:30 - am Allergies: Coded Allergies: PENICILLINS (Unverified Allergy, Unknown, 03/30/16) Subjective REVIEW OF SYSTEMS: Denies rash, fever, chills, sweating, dizziness, drowsiness, blurred vision, sore throat, or change in hearing or weight. No shortness of breath, chest pain, palpitations, or cough. No bowel or bladder incontinence. C/o right hip pain SUBJECTIVE: Pts pain has been mild. She is doing PT and has weakness. Objective Last 24 Hour Vital Signs Date Time Temp Pulse Resp B/P Pulse Ox O2 Delivery O2 Flow Rate FiO2 04/09/16 08:32 97.0 59 18 125/57 96 Room Air 04/09/16 00:21 98.5 56 18 110/69 95 Room Air 04/08/16 20:00 97.3 62 19 120/86 98 Room Air 04/08/16 16:00 96.4 64 18 122/86 97 Room Air 04/08/16 12:18 96.9 58 18 114/63 97 Room Air Intake and Output 04/08/16 04/09/16 19:00 07:00 Intake Total 240 ml Balance 240 ml Intake Oral 240 ml # Voids 2 1 Height (Feet): 5 Height (Inches): 7.00 Weight (Pounds): 170 Objective PHYSICAL EXAMINATION: GENERAL: The patient is alert, awake, and oriented x3. HEENT: PERRLA. NECK: Range of motion is full in all directions. No tenderness to paracervical muscles. No adenopathy. LUNGS: Clear. HEART: Regular. ABDOMEN: Benign. EXTREMITIES: Lower extremity range of motion is decreased due to the patient's pain and condition. Tenderness to palpation in the right hip bandages applied NEURO: No changes GEORGINA SAUL Apr 09, 2016 11:18
[2016-04-09 12:25] VITALS: BP 100/52
--- NOTE | 2016-04-09 15:24 | Cardiac Electrophysiology PN ---
Assessment/Plan Status Narrative Normal left ventricular chamber size, hyperdynamic systolic function and wall motion. Left ventricular ejection fraction estimated to be 70-75 %. Mild left ventricular hypertrophy. Anterior Echo-free space, may be due to pericardial fat or effusion. All other cardiac chamber sizes are within normal limits. Focal aortic valve sclerosis with adequate cusp excursion. Thickened mitral valve leaflets with normal excursion. Mitral annulus and aortic root calcification. Pulmonic valve not well visualized. Normal tricuspid valve structure. IVC dilated at 2.1 cm with slight physiologic collapse suggestive of mildly increased RA pressure. Assessment/Plan 1. Status post fall . No syncope. EF 75% . No 2. Transient atrial tach/fib . Resolved with no recurrence on tele. 3. Hypotension. Resolved 4. S/P ORIF right hip.Awaiting ARU transfer today SALOMON RN Subjective Subjective Alert in NAD. DC planning in progress today. Objective Last 24 Hour Vital Signs Date Time Temp Pulse Resp B/P Pulse Ox O2 Delivery O2 Flow Rate FiO2 04/09/16 12:25 97.2 60 18 100/52 98 Room Air 04/09/16 08:32 97.0 59 18 125/57 96 Room Air 04/09/16 00:21 98.5 56 18 110/69 95 Room Air 04/08/16 20:00 97.3 62 19 120/86 98 Room Air 04/08/16 16:00 96.4 64 18 122/86 97 Room Air Intake and Output 04/08/16 04/09/16 19:00 07:00 Intake Total 240 ml Balance 240 ml Intake Oral 240 ml # Voids 2 1 Current Medications Medications (Trade) Dose Ordered Sig/Bryan Route PRN Reason Start Time Stop Time Status Last Admin Dose Admin Acetaminophen/ Hydrocodone Bitart ([place] 10/325) 1 ea Q4H PRN ORAL moderate pain 04/07/16 09:32 04/14/16 09:31 04/08/16 22:14 Celecoxib (CeleBREX) 200 mg DAILY ORAL 04/02/16 09:00 05/02/16 08:59 04/08/16 09:05 Enoxaparin Sodium (Lovenox) 40 mg DAILY SUBQ 04/02/16 09:00 04/12/16 08:59 04/07/16 08:50 Ferrous Sulfate (Feosol) 325 mg THREE TIMES A DAY ORAL 04/02/16 09:00 05/02/16 08:59 04/08/16 19:56 Magnesium Hydroxide (Mom) 30 ml DAILYPRN PRN ORAL Constipation 04/01/16 19:15 05/01/16 19:14 Methocarbamol (Robaxin) 500 mg Q8H PRN ORAL muscle spasm 04/01/16 18:00 05/01/16 17:59 04/04/16 10:07 Metoclopramide HCl (Reglan) 10 mg Q6HR PRN IVP Nausea & Vomiting 04/01/16 18:00 05/01/16 17:59 Morphine Sulfate (Morphine Sulfate) 2 mg Q3H PRN IVP Moderate Breakthru Pain (4-6) 04/07/16 09:32 04/14/16 09:31 Morphine Sulfate (Morphine Sulfate) 4 mg Q3H PRN IVP Severe Pain (Pain Scale 7-10) 04/07/16 09:32 04/14/16 09:31 Ondansetron HCl (Zofran) 4 mg Q6HR PRN IVP Nausea & Vomiting 04/01/16 18:00 05/01/16 17:59 Prochlorperazine (Compazine) 10 mg Q6H PRN IVP Nausea & Vomiting 04/01/16 19:15 05/01/16 19:14 Senna/Docusate Sodium (Rosalinda-Colace) 1 ea TWICE A DAY ORAL 04/02/16 09:00 05/02/16 08:59 04/09/16 08:30 Objective HEAD AND NECK: No JVD or carotid bruits. LUNGS: Clear. CARDIOVASCULAR: Regular S1 and S2 with no gallop or murmur. ABDOMEN: Soft and nontender. EXTREMITIES: No pitting edema. S/P Right hip ORIF DAGMAR BENAVIDES Apr 09, 2016 15:24
[2016-04-09 16:00] VITALS: BP 131/65
[2016-04-09] MEDS: Norco 10mg/325mg tab ORAL PRN (16:16)
[2016-04-09 20:13] VITALS: BP 129/62
[2016-04-09] MEDS ORDERED: Tubing IV Secondary IV ONE (21:50)
[2016-04-09] MEDS ORDERED: NS 275ml ONE (21:50)
--- NOTE | 2016-04-12 13:10 | Discharge Summary ---
Discharge Summary Hospital Course Date of Admission Mar 30, 2016 at 18:58 Date of Discharge Apr 09, 2016 at 21:51 Admitting Diagnosis R. hip intertrochanteric fx. HPI Vincent Amaro is a 75 year old female who was admitted on Mar 30, 2016 at 18 :58 for Right Hip Intertronchanteric Fracture Hospital Course dc summary #[id number] Discharge Medications Continued Medications: Docusate Sod/Senna (Docusate Sodium-Senna Tablet) 1 Each Tablet 1 CAP ORAL TWICE A DAY, #10 CAP 0 Refills Enoxaparin (Lovenox) 40 Mg/0.4 Ml Syringe 40 MG SUBQ DAILY, MG Ferrous Sulfate (Ferrous Sulfate) 325 Mg Tablet.dr 325 MG ORAL THREE TIMES A DAY, #30 TAB 0 Refills Hydrocodone/Acetaminophen (Hydrocodon-Acetaminophn 10-325) 1 Each Tablet 1 TAB ORAL Q4H PRN for Moderate Pain (Pain Scale 4-6), #30 TAB 0 Refills Magnesium Hydroxide (Milk of Magnesia) 400 Mg/5 Ml Oral.susp 30 ML ORAL DAILY PRN for Constipation, ML Methocarbamol* (Robaxin*) 500 Mg Tablet 500 MG PO EVERY 8 HOURS PRN for Muscle Spasm, #21 TAB 0 Refills Ondansetron (Zofran) 4 Mg Tablet 4 MG ORAL Q6H PRN for Nausea & Vomiting, TAB Temazepam (Temazepam*) 7.5 Mg Capsule 7.5 MG ORAL BEDTIME PRN for Insomnia, #30 CAP 0 Refills Discontinued Medications: No Known Medications* (NKM - No Known Medications*) . 0 ., 0 Refills Discharge Condition Upon Discharge: stable Discharge Disposition Patient was discharged to SNF/Subacute Facility(03) Discharge Diagnoses: Uvaldo (Isamar),Yue GUILLEN Apr 12, 2016 13:10
--- NOTE | 2016-04-13 03:17 | Discharge Summary 2 SIG ---
DATE OF ADMISSION: 03/30/2016 DATE OF DISCHARGE: 04/09/2016 REASON FOR HOSPITALIZATION: 75-year-old female was at work while she tripped over a wire on the floor. She fell on her right side. She was brought in complaining of the right hip pain. She was unable to bear weight after the fall. She denied any head injury or head trauma. No blackouts. No loss of consciousness. No neck pain. No headache. No chest pain. No shortness of breath. No abdominal pain. No other complaint.s No other past medical history. X-ray in the emergency department revealed right acute intertrochanteric hip fracture. The patient was admitted to telemetry floor for further management. ADMITTING DIAGNOSES: 1. Status post mechanical fall. 2. Acute right intertrochanteric hip fracture. HOSPITAL COURSE: An orthopedic surgeon was contacted. He reviewed the x-ray, which revealed acute two-part intertrochanteric hip fracture and explained to the patient that she needs surgery for repair of right hip fracture. Subsequently after obtaining consent, the surgery was performed- open reduction and internal fixation of the right hip fracture , on 03/31/2016. Surgery was done after cardiac clearance was obtained. The patient had a transient episode of atrial tachycardia and atrial fibrillation, which resolved without recurrence. and the Echocardiogram revealed preserved ejection fraction of 70% to 75% and mild LVH, no aortic stenosis, and right ventricular systolic pressure of 40 consistent with mild pulmonary hypertension. Course of recovery was uneventful. Pain specialist was consulted for pain management. The patient worked with the physical occupational therapists. Fall precautions were maintained. Pain management provided. Bowel regimen instituted. DVT prophylaxis provided. Per PT evaluation, the patient required placement for short-term rehabilitation center, which was arranged. Laboratory work stable. Initial hypotension resolved. The patient was able to ambulate with assistance. Voiding freely. Tolerated diet. Pain controlled. The patient was stable for discharge. DISCHARGE DIAGNOSES: 1. Status post mechanical fall. 2. Right two-part intertrochanteric acute hip fracture. 3. Status post right open reduction and internal fixation of right hip fracture. 4. Mild pulmonary hypertension. 5. Transient atrial tachycardia/atrial fibrillation, resolved. 6. Hypotension, resolved. DISCHARGE MEDICATIONS: See medication reconciliation list. DISCHARGE INSTRUCTIONS: The patient was discharged to short-term [facility] facility for PT and OT. Perry Santiago M.D. I have been assigned to dictate discharge summary on this account and I was not involved in the patient's management. Yue Bailon (Vanchtein) N.PZay DR: SEDA JOB#: [id number] CC: MICHAEL
== END 2016-04-09 21:51 | disposition short-term general hospital (02) | DRG 481 ==
LOC: EDBD 15:59 → EMR 17:09 → EDBEDREQ 18:43 → 3E 18:58 → EDBEDREQ 19:32 → 2W 03-31 23:00 → 2E 04-01 18:25
PROC: 0QS604Z Reposition Right Upper Femur with Internal Fixation Device, Open Approach (ICD-10-PCS; principal; 2016-03-31 17:30)
DX: S72.144A Nondisplaced intertrochanteric fracture of right femur, initial encounter for closed fracture (principal); I47.1 Supraventricular tachycardia; I95.9 Hypotension, unspecified; I48.91 Unspecified atrial fibrillation; E86.0 Dehydration; Z88.0 Allergy status to penicillin; I10 Essential (primary) hypertension; W01.0XXA Fall on same level from slipping, tripping and stumbling without subsequent striking against object, initial encounter; Y92.89 Other specified places as the place of occurrence of the external cause; Y99.8 Other external cause status
CPT/HCPCS: 36415; 71010; 76000; 80053; 85025; 85610; 85730; 86850; 86900; 86901; 93005; 93306; 94003; 94150; 94760; C9399; J2250; J2405; S0077